=== PATIENT | male | born 1985 | race African-American/Black ===

== ENCOUNTER 2017-12-06 17:23 | Inpatient (IN) | payer OTHER ==
[~2017-12-06] VITALS: Ht 182.9 cm; Wt 116.1 kg
[2017-12-06 18:46] LABS: ABSOLUTE BASOPHIL COUNT 0 /CUMM (0.0-0.2); ABSOLUTE EOSINOPHIL COUNT 0.1 /CUMM (0.0-0.7); ABSOLUTE GRANULOCYTE CT 8.7 /CUMM (1.4-6.5); ABSOLUTE LYMPH COUNT 1.6 /CUMM (1.2-3.4); ABSOLUTE MONOCYTE COUNT 0.8 /CUMM (0.10-0.60); BASOPHIL % 0.3 % (0.0-2.0); EOSINOPHIL % 1.1 % (0-5); GRANULOCYTE % 77.4 % (42.2-75.2); HEMATOCRIT 45.6 % (42-52); MEAN CORPUSCULAR HGB 26.4 PG (27.0-31.0); MEAN CORPUSCULAR HGB CONC 33.3 G/DL (33.0-37.0); MEAN CORPUSCULAR VOLUME 79.3 FL (80.0-94.0); MEAN PLATELET VOLUME 9.1 FL (7.4-10.4); PLATELET COUNT 243 /CUMM (130-400); RBC DISTRIBUTION WIDTH 13.2 % (11.5-14.5); RED BLOOD CELL CT 5.76 /CUMM (4.70-6.10); WHITE BLOOD CELL COUNT 11.3 /CUMM (4.8-10.8)
--- NOTE | 2017-12-06 19:09 | ED PSYCHIATRIC COMPLAINT ---
History of Present Illness General Chief Complaint: Psychiatric Related Complaint Stated Complaint: PT SI COMMENTS Source: patient Exam Limitations: no limitations Vital Signs & Intake/Output Vital Signs & Intake/Output Vital Signs Date Time Temp Pulse Resp B/P B/P Pulse O2 O2 Flow FiO2 Mean Ox Delivery Rate 12/08 0830 97.8 78 18 159/93 96 Room Air 12/08 0541 97.1 67 18 132/78 98 12/08 0026 97.7 62 18 143/86 98 Room Air 12/07 2127 97.8 68 20 158/110 98 Room Air 12/07 1922 98.5 73 20 118/90 99 Room Air 12/07 1727 98.4 77 20 120/90 98 Room Air 12/07 1444 98.2 77 18 137/98 98 Room Air Allergies Coded Allergies: No Known Allergies (12/06/17) Triage Note: 32M TO ED WITH INCREASED DEPRESSION AND SI THOUGHTS WITH PLAN TO SMOKE CRACK. RECENTLY GOT OUT OF RESIDENTIAL IN [place] AND LIVING WITH MOTHER AND WANTS TO LIVE A HEALTHIER LIFE AND BE INVOLVED IN HIS CHILDRENS LIVES. ARRIVES WITH BROTHER FOR EMOTIONAL SUPPORT. CALM, COOPERATIVE IN TRIAGE. DENIES ILLICIT DRUG USE BUT STATES HE ACCIDENTALLY ATE AN EDIBLE RECENTLY AND WASN'T AWARE. REQUESTING POSSIBLE METHADONE OR SUBOXONE TREATMENT. CALM, COOPERATIVE IN TRIAGE AND AGREEABLE TO PLAN. Triage Nurses Notes Reviewed? yes Onset: Abrupt Duration: day(s): Timing: recent history HPI: 32-year-old male with a prior history of substance abuse crack cocaine comes into the emergency room with suicidal thoughts and anxious. He reports she's been hearing voices. He reports that today he almost started to use drugs again. He denies any alcohol use or any other drug use. He reports she is not using about 6 months. Denies any vomiting. Denies any other associated symptoms. He's had some fleeting thoughts of suicide. (Jimmie Wells) Reconcile Medications No Known Home Medications (Mara RIVERA,Blane Belcher) Past History Travel History Traveled to [place] past 21 day No Medical History Any Pertinent Medical History? see below for history Neurological: NONE EENT: NONE Cardiovascular: NONE Respiratory: NONE Gastrointestinal: NONE Hepatic: NONE Renal: NONE Musculoskeletal: NONE Psychiatric: NONE Endocrine: NONE Blood Disorders: NONE Cancer(s): NONE Isolation History: Standard Surgical History Surgical History: non-contributory Psychosocial History What is your primary language Azerbaijani Tobacco Use: Current Not Daily Daily Tobacco Use Amount/Type: =< 4 Cigarettes daily ETOH Use: occasional use Illicit Drug Use: UTD Family History Hx Contributory? No (Jimmie Wells) Review of Systems Review of Systems Constitutional: Reports: no symptoms. EENTM: Reports: no symptoms. Respiratory: Reports: no symptoms. Cardiovascular: Reports: no symptoms. GI: Reports: no symptoms. Genitourinary: Reports: no symptoms. Musculoskeletal: Reports: no symptoms. Skin: Reports: no symptoms. Neurological/Psychological: Reports: see HPI. Hematologic/Endocrine: Reports: no symptoms. Immunologic/Allergic: Reports: no symptoms. All Other Systems: Reviewed and Negative (Jimmie Wells) Physical Exam Physical Exam General Appearance: well developed/nourished, mild distress Head: atraumatic Eyes: Bilateral: normal appearance. Ears, Nose, Throat: normal ENT inspection, hearing grossly normal Neck: normal inspection Respiratory: no respiratory distress Cardiovascular: regular rate/rhythm Extremities: normal range of motion Neurological/Psychiatric: alert, normal mood/affect Appearance/Memory/Insight: impaired insight Behavoir/Eye Contact/Speech: cooperative Thoughts/Hallucinations: no apparent hallucination Skin: intact, normal color, warm/dry SAD PERSONS SAD PERSONS Response Value Male Sex? yes 1 Depression/Hopelessness? yes 2 Excessive Ethanol/Drug Use? yes 1 Rational Thinking Loss? yes 2 Single//? yes 1 Total 7 SAD PERSONS Done? yes (Jimmie Wells) Progress Differential Diagnosis: dementia, drug intoxication, drug overdose, drug withdrawal, SCHIZOAFFECTIVE, BIPOLAR, PSYCHOSIS, Plan of Care: Current Medications Sig/Julieta Start time Last Medication Dose Stop Time Status Admin Risperidone 1 MG BID 12/06 2014 UNVr 12/08 (Risperidone) 1014 Hand-Off Endorsed To: Palmer Damon MD Endorsed Time: 2045 Pending: consult (CRISIS) (Jimmie Wells) Comments: 12/07/17 07:10 pt signed out to me by dr damon. 12/07/2017 7:08:31 PM patient signed out to Dr. Palmer at shift international exchange coordinator. (Mara RIVERA,Blane Belcher) Departure Departure Disposition: STILL A PATIENT Condition: Stable Referrals: Unknown (PCP/Family) Departure Forms: Customer Survey General Discharge Information (Jmimie Wells) Departure Prescriptions: Current Visit Scripts No Known Home Medications (Mara RIVERA,Blane Belcher) Departure Comments pt to be signed out to dr. miller, 12/08/17, 7am. (Otto Palmer MD) Departure Clinical Impression Primary Impression: Suicidal ideation Secondary Impressions: Schizophrenia, unspecified Admission Note Spoke With: Otto Lezama MD Documentation of Exam: Documentation of any treatments & extenuating circumstances including Concerns Regarding Discharge (functional status, medication knowledge or non-compliance, living conditions, etc.) that warrant an admission rather than observation: [ Admit to inpatient psychiatry, med management] Psych Admission Note Psychiatric Admission: I have seen and evaluated MARIE RODRIGUEZ. I have also reviewed all the pertinent lab results and diagnostic results. MARIE RODRIGUEZ will be admitted to our inpatient Psychiatric unit for treatment and care. (Sophia RIVERA,Brian Cameron) Comments pt to be signed out to dr. miller, 12/08/17, 7am. (Otto Palmer MD) Condition: Stable Clinical Impression Primary Impression: Suicidal ideation Referrals: Unknown (PCP/Family) Departure Forms: Customer Survey General Discharge Information (Jimmie Wells)
--- NOTE | 2017-12-06 20:34 | ED PSYCH CRISIS CONSULTATION ---
See Addendum Crisis Consult Basic Assessment Date of Consult: 12/06/17 Responsible Person/Accompanied By: friend, Olayinka Insurance Authorization: Insurance #1: Insurance name: [employer]YA Phone number: Policy number: [id number] Group number: Authorization number: ED Provider: Patient's ED Provider: Jimmie Wells Primary Care Physician: Patient's PCP: Unknown PCP's Phone Number: Current Psychiatrist: none Chief Complaint: Psychiatric Related Complaint Patient's Quote: "I have a lot going on right now" Present Illness: Pt is a 32 year old man presenting to the ED with his friend Olayinka. Pt demonstrated disorganized thinking during the assessment and it was difficult to obtain an accurate timeline of events patient was reporting. Pt is local to the [facility] but his friend brought him here as this was the closer hospital to where they were. Pt reports he has been reading the Bible a lot and it is tormenting him. He has been hearing voices - some God some demonic. He states the voices are not loud and he has to concentrate on them to make out what they are saying. When he hears them they scare him. He reports he has been hearing voices for a few years. He initially denied mental health treatment and stated he went to see a annealing torch operator. He reports he wants to but he doesn't want to kill himself because it is a sin. He denies prior suicide attempts. He did have a sister who killed herself 10-15 years ago. Pt offers that he did a lot of self medicating. Pt has a history of using ETOH, Cigarettes , Marijuana, Cocaine, Crack-Cocaine, Mushrooms, Acid, Heroin and Methadone. Pt offers that the most recent drug he was using was Methadone and Crack-Cocaine. Pt offers that he was on Methadone maintenence through [facility] but he is no longer on Methadone. Pt's utox was negative and BAL was zero. Pt offered that the second most recent drug he was using was Crack/Cocaine. He stated he started using this 2 years ago and his last use was April 14, 2017. When asked he remembered that date he said because he went to halfway on April 15, 2017. He stated that he went to halfway because he heard voices telling him that his daughter was being raped so he went to his kid's mother's house with a machete. He was subsequently arrested and put in halfway. He shared he was in halfway for 5-6 months. He was in [place] and the mental health block at [facility]. While on the mental health block he states he was told is he bipolar and was started on Trileptal and Abilify. Pt states they didn't help and made him more depressed. Pt expressed guilt in not being a good father to his two daughters (7 & 9). He states there are no current restrictions for visitation for his daughters but he does not see them often. DCF was involved in the past but he states not currently. Pt reports he has court at the end of November for the incident previously described. He is on probation. He is involved in a halfway diversion program. Pt frequently returned to talking about how he is worried about his eternal life. He shared that he was raised orthodox but did not complete any sacraments. He has always believed in Devang/God. He currently lives with his mom and father (who is ill). Patient endorses AH with command hallucinations at times. The voices told him to gouge his eyes out today. Pt does believe that something is meddling with his thoughts. He does think everything is talking/ communicating. He states at times he see flashes of light that is unsure if anyone else sees. Olayinka, friend, offers that his is concerned about the pt. He believes he is hearing voices and is "bugging out". He has known pt since they were 8 years old. He believes safety is an issue. We discussed options for treatment. Crisis highly recommended patient for inpatient psychiatric treatment for stabalization. [facility] Explained that there are no beds here at our hospital tonight and that he would be spending the night. Pt agreed. Informed patient that best case scenario is that he is able to be transferred tomorrow and worst case scenario is that he is admitted here Friday, if we have bed availabilty. Pt agrees to remain in ED with pending admission for inpatient psychiatric hospitalization. Pt was asked if he would be willing to start a medication tonight to try to alleviate the AH. Pt stated yes. Crisis consulted with Dr. Velásquez- client professional psychiatrist. He recommended Risperdal 1mg bid. Crisis informed RN and Dr. Damon who ordered the medication. Patient's Address: [address] [place] [id number] Other Phone Number: Who Do You Live With? Family Family/Informants Interviewed: Friend, Olayinka was present with pt during assessment and offered that he is worried about the pt's safety. Allergies - Coded Allergies: No Known Allergies (12/06/17) Laboratory Results: Laboratory Tests 12/06/171834: Serum Alcohol < 10.0 12/06/171834: Anion Gap 12, Estimated GFR > 60, BUN/Creatinine Ratio 12.5, Glucose 104 H, Calcium 9.5, Total Bilirubin 1.0, AST 23, ALT 33, Alkaline Phosphatase 64, Total Protein 7.7, Albumin 4.4, Globulin 3.3, Albumin/Globulin Ratio 1.3, CBC w Diff NO MAN DIFF REQ, RBC 5.76, MCV 79.3 L, MCH 26.4 L, MCHC 33.3, RDW 13.2, MPV 9.1, Gran % 77.4 H, Lymphocytes % 14.4 L, Monocytes % 6.8, Eosinophils % 1.1, Basophils % 0.3, Absolute Granulocytes 8.7 H, Absolute Lymphocytes 1.6, Absolute Monocytes 0.8 H, Absolute Eosinophils 0.1, Absolute Basophils 0, Urine Opiates Screen < 100, Methadone Screen < 40, Barbiturate Screen < 60, Ur Phencyclidine Scrn < 6.00, Amphetamines Screen < 100, U Benzodiazepines Scrn < 85, Urine Cocaine Screen < 50, Urine Cannabis Screen < 5.00 (Shahla Ventura LCSW) Addendum Addendum Addendum 12/07/17: Pt. was very forthcoming in his communication with this automobile and property underwriter. He said he was "going through a crisis in his life right now about roman catholic" and "christian turmoil" and is concerned about his "eternal bryan". He inquired about christian services available to him in the hospital today. He said "my friend caught be right before I was about to do it". When asked what it was, he said "buy some crack to smoke it", he explained that he thought smoking crack would temporarily distract him from the "christian problems" he is having now. Pt. is happy to wait here for a hospital bed, although he expressed doubts that it would help him with the "christian turmoil" he was having right now. (Didier CONSTANTINOW,Felicia) Past History Past Medical History Neurological: NONE EENT: NONE Cardiovascular: NONE Respiratory: NONE Gastrointestinal: NONE Hepatic: NONE Renal: NONE Musculoskeletal: NONE Psychiatric: NONE Endocrine: NONE Blood Disorders: NONE Cancer(s): NONE Past Surgical History Surgical History: non-contributory Psychosocial History Strengths/Capabilities: patient has a supportive family pt is involved in an IOP in [place] and is in halfway diverson program Physical Limitations (Interventions): none Psychiatric Treatment History Psych Treatment Psychiatric Treatment No Diagnosis by History: Bipolar by psychiatrist on mental health block in halfway Substance Use/Abuse History Drug Use/Abuse 1 Substances Used/Abused Yes Substance Used/Abused Alcohol How often when he was younger, no longer drinks Drug Use/Abuse 2 Substances Used/Abused Yes Substance Used/Abused Marijuana First Use 13 Last Used 1 year ago How much used/taken from age 14 on he reports mostly smoking daily Route of use inhale Drug Use/Abuse 3 Substances Used/Abused Yes Substance Used/Abused Cocaine First Use college Last Used unsure Drug Use/Abuse 4 Substances Used/Abused Yes Substance Used/Abused Hallucinogens (acid/ mushrooms) Last Used unk, not current use Drug Use/Abuse 5 Substances Used/Abused Yes Substance Used/Abused Heroin First Use unk Last Used unk How much used/taken varied Route of use snort Drug Use/Abuse 6 Substances Used/Abused Yes Substance Used/Abused Crack Cocaine First Use 31 Last Used 04/14/17 Drug Use/Abuse 7 Substances Used/Abused Yes Substance Used/Abused Other (list in comments) (Methadone) Last Used reports recently stopped taking Methadone Substance Abuse Treatment Substance Abuse Treatment Past Substance Abuse [place] Yes Inpatient Treatment Yes Outpatient Treatment Yes [facility]unsure [facility]) Reason for Treatment substance abuse (Audrey CONSTANTINOW,Shahla) Current Mental Status Mental Status Orientation: Person, Place, Situation Affect: Sad Speech: Normal Neuro-vegetative: Anhedonia, Helpless, Loss of Interest Appearance Appearance- Dress/Hygiene: pt presents in blue hospital attire no remarkable features Behaviors Thought Process: Disorganized Thought Content: Auditory Hallucinations, Paranoid, Zoroastrianism Memory: Impaired Insight: Fair SI/HI Risk Assessment Past Suicidal Ideation/Attempts Yes Current Suicidal Ideation/Att Yes Past Homicidal Ideation/Att: No Current Homicidal Ideation/Attempts No Degree of Intent: Thoughts/No Intent Danger To: Self Risk Factors: high anxiety/distress, substance abuse, poor impulse control, male , limited support Lethality Ratin PTSD Checklist PTSD Done? 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 Aamir Velásquez Date Disposition Established: 12/06/17 Time Disposition Established: 1999 Plan for Disposition - Modality: Inpatient Psychiatry Facility: bed search Rationale for Disposition: Pt to ED with thoughts wishing to be as well as AH (at times they are command hallucinations to hurt himself). Pt requires inpatient treatment for stabalization. Referrals Unknown (PCP/Family) (Shahla Ventura LCSW)
--- NOTE | 2017-12-07 14:04 | ED PSYCHIATRIST/APRN CONSULT ---
Psychiatrist/PL SQL DEVELOPER ED Consult Assessment and Plan: ED psychiatrist consult Evaluated Mr. Mills [id number] this morning. Briefly, he is a 32-year-old unemployed, domiciled man with long-standing history of substance use disorders as well as history of incarceration. He presented to the emergency department yesterday accompanied by his friend due to poor mood and paranoid ideation. He agreed to voluntary inpatient hospitalization, and is currently awaiting identification of an inpatient bed. He was given risperidone 1 mg twice a day beginning last evening. Mr. Mills describes a number of phenomena concerning for psychosis, including paranoid ideation, ideas of reference, thought insertion, "sometimes I just feel like the TV is talking to me ". He notes that this is been going on for a few months. Concurrently, his mood has become increasingly depressed, describes increased amount of time reading the Bible and thinking about various jainism themes, thinking about the devil, thinking about where he will go in the afterlife, etc. He also notes the onset of auditory hallucinations, "I'm not exactly sure who it is, maybe the devil ". He says that the voice is generally negative, never of command nature to kill himself or others, however, often times does tell him to use substances. He notes that he hasn't actually used any substances for months now, and his urine drug screen was indeed negative. He does not describe any amando manic episodes in the absence of concurrent stimulant use, however, he does note in the past that concurrent with cocaine use he has been up for days on end, thinking he has special stover, grandiosity, etc. During the past few days, he denies thoughts about hurting himself or others, "I actually want to get better, I want to live." Family history: notes that his brother has bipolar disorder, and "both my mom and dad have something, I don't know exactly what it is ". Also notes his grandmother with psychiatric disease consistent with bipolar disorder. Please see the remainder of crisis outreach and education social worker note for further details Mental status exam: This is a moderately disheveled overweight man with a ramirez, very cooperative, in good behavioral control, good eye contact. There is mild psychomotor retardation. No abnormal movements are noted. Speech is slightly slowed, quiet. Mood is "really really depressed ", affect is somewhat odd, mildly labile. Thought process is somewhat circumstantial, content notable for ideas of reference, possible thought insertion, possible thought broadcasting, positive auditory hallucinations "of the devil ", generally noncommand nature, denies any visual hallucinations. Positive paranoid ideation. Cognition is alert and oriented to person, place, time. Insight and judgment are fair. Assessment: 32-year-old man with long-standing substance abuse history with strong family history for bipolar disorder presenting with months of psychotic symptoms in the absence of any recent active substance use, accompanied by significant depression, concerning for a psychotic depressive episode, likely with an underlying diagnosis of bipolar disorder. Recommendation: will continue to attempt to arrange psychiatric hospitalization on a voluntary basis -Pls continue to offer Risperdal 1 mg twice a day to provide some relief from psychotic symptoms. Described the risks and benefits of this medication to the patient and answered all questions. He does note that this was of some benefit to his symptoms even after a few doses.
--- NOTE | 2017-12-08 11:28 | IP CRISIS DIAG ASSESS PSYCH ---
Diagnostic Assessment Basic Assessment Insurance Authorization: Insurance #1: Insurance name: [employer] Phone number: Policy number: [id number] Group number: Authorization number: [id number] Authorized for 3 days from 12/08/17-12/10/17 Primary Care Physician: Patient's PCP: Unknown PCP's Phone Number: Patient's Quote: "I have a lot going on right now" Present Illness: Pt is a 32 year old man presenting to the ED with his friend Olayinka. Pt demonstrated disorganized thinking during the assessment and it was difficult to obtain an accurate timeline of events patient was reporting. Pt is local to the [facility] but his friend brought him here as this was the closer hospital to where they were. Pt reports he has been reading the Bible a lot and it is tormenting him. He has been hearing voices - some God some demonic. He states the voices are not loud and he has to concentrate on them to make out what they are saying. When he hears them they scare him. He reports he has been hearing voices for a few years. He initially denied mental health treatment and stated he went to see a head turning machine operator. He reports he wants to but he doesn't want to kill himself because it is a sin. He denies prior suicide attempts. He did have a sister who killed herself 10-15 years ago. Pt offers that he did a lot of self medicating. Pt has a history of using ETOH, Cigarettes , Marijuana, Cocaine, Crack-Cocaine, Mushrooms, Acid, Heroin and Methadone. Pt offers that the most recent drug he was using was Methadone and Crack-Cocaine. Pt offers that he was on Methadone maintenence through [facility] but he is no longer on Methadone. Pt's utox was negative and BAL was zero. Pt offered that the second most recent drug he was using was Crack/Cocaine. He stated he started using this 2 years ago and his last use was April 14, 2017. When asked he remembered that date he said because he went to halfway on April 15, 2017. He stated that he went to halfway because he heard voices telling him that his daughter was being raped so he went to his kid's mother's house with a machete. He was subsequently arrested and put in halfway. He shared he was in halfway for 5-6 months. He was in [place] and the mental health block at [place]. While on the mental health block he states he was told is he bipolar and was started on Trileptal and Abilify. Pt states they didn't help and made him more depressed. Pt expressed guilt in not being a good father to his two daughters (7 & 9). He states there are no current restrictions for visitation for his daughters but he does not see them often. DCF was involved in the past but he states not currently. Pt reports he has court at the end of November for the incident previously described. He is on probation. He is involved in a halfway diversion program. Pt frequently returned to talking about how he is worried about his eternal life. He shared that he was raised anabaptist but did not complete any sacraments. He has always believed in Devang/God. He currently lives with his mom and father (who is ill). Patient endorses AH with command hallucinations at times. The voices told him to gouge his eyes out today. Pt does believe that something is meddling with his thoughts. He does think everything is talking/ communicating. He states at times he see flashes of light that is unsure if anyone else sees. Olayinka, friend, offers that his is concerned about the pt. He believes he is hearing voices and is "bugging out". He has known pt since they were 8 years old. He believes safety is an issue. We discussed options for treatment. Crisis highly recommended patient for inpatient psychiatric treatment for stabalization. [facility] Explained that there are no beds here at our hospital tonight and that he would be spending the night. Pt agreed. Informed patient that best case scenario is that he is able to be transferred tomorrow and worst case scenario is that he is admitted here Friday, if we have bed availabilty. Pt agrees to remain in ED with pending admission for inpatient psychiatric hospitalization. Pt was asked if he would be willing to start a medication tonight to try to alleviate the AH. Pt stated yes. Crisis consulted with Dr. Velásquez- space and missile operations psychiatrist. He recommended Risperdal 1mg bid. Crisis informed RN and Dr. Damon who ordered the medication. Per Dr. Velásquez: ED psychiatrist consult Evaluated Mr. Mills [id number] this morning. Briefly, he is a 32-year-old unemployed, domiciled man with long-standing history of substance use disorders as well as history of incarceration. He presented to the emergency department yesterday accompanied by his friend due to poor mood and paranoid ideation. He agreed to voluntary inpatient hospitalization, and is currently awaiting identification of an inpatient bed. He was given risperidone 1 mg twice a day beginning last evening. Mr. Mills describes a number of phenomena concerning for psychosis, including paranoid ideation, ideas of reference, thought insertion, "sometimes I just feel like the TV is talking to me ". He notes that this is been going on for a few months. Concurrently, his mood has become increasingly depressed, describes increased amount of time reading the Bible and thinking about various church themes, thinking about the devil, thinking about where he will go in the afterlife, etc. He also notes the onset of auditory hallucinations, "I'm not exactly sure who it is, maybe the devil ". He says that the voice is generally negative, never of command nature to kill himself or others, however, often times does tell him to use substances. He notes that he hasn't actually used any substances for months now, and his urine drug screen was indeed negative. He does not describe any amando manic episodes in the absence of concurrent stimulant use, however, he does note in the past that concurrent with cocaine use he has been up for days on end, thinking he has special stover, grandiosity, etc. During the past few days, he denies thoughts about hurting himself or others, "I actually want to get better, I want to live." Family history: notes that his brother has bipolar disorder, and "both my mom and dad have something, I don't know exactly what it is ". Also notes his grandmother with psychiatric disease consistent with bipolar disorder. Please see the remainder of crisis social work therapist note for further details Mental status exam: This is a moderately disheveled overweight man with a ramirez, very cooperative, in good behavioral control, good eye contact. There is mild psychomotor retardation. No abnormal movements are noted. Speech is slightly slowed, quiet. Mood is "really really depressed ", affect is somewhat odd, mildly labile. Thought process is somewhat circumstantial, content notable for ideas of reference, possible thought insertion, possible thought broadcasting, positive auditory hallucinations "of the devil ", generally noncommand nature, denies any visual hallucinations. Positive paranoid ideation. Cognition is alert and oriented to person, place, time. Insight and judgment are fair. Assessment: 32-year-old man with long-standing substance abuse history with strong family history for bipolar disorder presenting with months of psychotic symptoms in the absence of any recent active substance use, accompanied by significant depression, concerning for a psychotic depressive episode, likely with an underlying diagnosis of bipolar disorder. Recommendation: will continue to attempt to arrange psychiatric hospitalization on a voluntary basis -Pls continue to offer Risperdal 1 mg twice a day to provide some relief from psychotic symptoms. Described the risks and benefits of this medication to the patient and answered all questions. He does note that this was of some benefit to his symptoms even after a few doses. Patient's Address: [address] [place] [address] Other Phone Number: Who Do You Live With? Family Feel Safe Where You Live? Yes Marital Status: single Do You Have Children? Yes Ages? 7 & 9 Primary Language? Botswanan Language(s) Spoken At Home: [place] Family/Informants Interviewed: Friend, Olayinka was present with pt during assessment and offered that he is worried about the pt's safety. Allergies - Coded Allergies: No Known Allergies (12/06/17) Current Medications - No Known Home Medications Consequences of Psych Med Use: Pt reports he was on Trileptal and Abilify in the past. He reports they made him more depressed. Toxicology Screen Completed? Yes Results: negative Symptoms of Use: Pt is not currently using substance. Has a history of polysubstance abuse. Past History Abuse/Trauma History Trauma History/Current Trauma: Denies Legal History Current Legal Status: on probation Have you ever been arrested? Yes Number of Arrests: [address] Dates: Pt has court in [place] on 12/12/17. Psychosocial History Strengths/Capabilities: patient has a supportive family pt is involved in an IOP in [place] and is in halfway diverson program Physical Limitations (Interventions): none Psychiatric Treatment History Psych Treatment Psychiatric Treatment No Diagnosis by History: Bipolar by psychiatrist on mental health block in halfway Risk Factors: high anxiety/distress, substance abuse, poor impulse control, male , limited support Substance Use/Abuse History Drug Use/Abuse minimum 12mo Hx Substances Used/Abused Yes Substance Used/Abused Crack Cocaine (Methadone) First Use 30 Last Used 04/14/17 How much used/taken varied How often varied For how long on and off since 30 Route of use snort Substance Abuse Treatment Substance Abuse Treatment Past Substance Abuse TX Yes Inpatient Treatment Yes Outpatient Treatment Yes Location of Treatment [facility], [facility] (unsure of name) Reason for Treatment substance abuse Sexual History Sexually Active No Education History Highest Level of Education: some college Current Mental Status Mental Status Orientation: Person, Place, Situation Affect: Sad Speech: Normal Neuro-vegetative: Anhedonia, Helpless, Loss of Interest Appearance Appearance- Dress/Hygiene: pt presents in [facility] attire no remarkable features Behaviors Thought Process: Disorganized Thought Content: Auditory Hallucinations, Paranoid, Orthodoxy Memory: Impaired Insight: Fair SI/HI Risk Assessment - Minimum 6mo History- Past Suicidal Ideation/Attempts Yes Current Suicidal Ideation/Att Yes Past Homicidal Ideation/Att: No Current Homicidal Ideation/Attempts No Degree of Intent: Thoughts/No Intent Danger To: Self Risk Factors: high anxiety/distress, substance abuse, poor impulse control, male , limited support Lethality Ratin Needs/Init TX Plan/Goals: 1. Psychosocial Assessment 2. Psychiatric Assessment 3. 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
[2017-12-08 13:13] VITALS: BP 155/94
[2017-12-08 15:57] VITALS: BP 150/89
--- NOTE | 2017-12-08 17:31 | History & Physical ---
General Information and HPI MD Statement: I have seen and personally examined MARIE RODRIGUEZ and documented this H&P. The patient is a 32 year old M who presented with a patient stated chief complaint of "I have a lot going on right now". I have a lot going on right now " " Source of Information: patient, family Exam Limitations: unable to give history History of Present Illness: 32-year-old male having suicidal comments and having suicidal comments. . He came to the emergency department with increased depression and suicidal ideation.. He got out of residential in July. Living with his mother , came to the emergency room with his best friend friend reports hearing voices. "No drug use for the last 6 months". Patient does not seem safe Patient does not seem safe.. Allergies/Medications Allergies: Coded Allergies: No Known Allergies (12/06/17) Home Med list No Known Home Medications Compliance With Home Meds: UNKNOWN Past History Travel History Traveled to [place] past 21 day No Medical History Neurological: NONE EENT: NONE Cardiovascular: NONE Respiratory: NONE Gastrointestinal: NONE Hepatic: NONE Renal: NONE Musculoskeletal: NONE Psychiatric: NONE Endocrine: NONE Blood Disorders: NONE Cancer(s): NONE Isolation History: Standard Surgical History Surgical History: non-contributory Past Family/Social History Psychosocial History ETOH Use: occasional use Illicit Drug Use: UTD Review of Systems Review of Systems Constitutional: Reports: see HPI. Exam & Diagnostic Data Last 24 Hrs of Vital Signs/I&O Vital Signs Date Time Temp Pulse Resp B/P B/P Pulse O2 O2 Flow FiO2 Mean Ox Delivery Rate 12/08 1557 84 150/89 12/08 1313 97.8 76 155/94 12/08 1153 97.7 80 18 136/81 98 Room Air 12/08 0830 97.8 78 18 159/93 96 Room Air 12/08 0541 97.1 67 18 132/78 98 12/08 0026 97.7 62 18 143/86 98 Room Air 12/077 97.8 68 20 158/110 98 Room Air 12/07 1922 98.5 73 20 118/90 99 Room Air 12/07 1727 98.4 77 20 120/90 98 Room Air Intake & Output 12/08 1600 12/08 0800 12/08 0000 Intake Total Output Total Balance Patient 256 lb Weight Physical Exam General Appearance Alert, Oriented X3, Cooperative, No Acute Distress Skin No Rashes HEENT PERRLA, EOMI Neck Supple, No JVD Lymphatic Axillary nl, Cervical nl Cardiovascular Regular Rate, No Murmurs Lungs Clear to Auscultation, Normal Air Movement Abdomen Soft, No Tenderness, No Hepatospenomegaly Neurological Exam Findings: Normal Gait, Normal Speech, Strength at 5/5 X4 Ext, Normal Tone, Sensation Intact, Cranial Nerves 3-12 NL, Reflexes 2+ Cranial Nerves II through XII: Intact intact Extremities No Edema, Normal Pulses Vascular Normal Pulses, Pulses Symmetrical Last 24 Hrs of Labs/Axel: Laboratory Tests 12/06/171834: Serum Alcohol < 10.0 12/06/171834: Anion Gap 12, Estimated GFR > 60, BUN/Creatinine Ratio 12.5, Glucose 104 H, Calcium 9.5, Total Bilirubin 1.0, AST 23, ALT 33, Alkaline Phosphatase 64, Total Protein 7.7, Albumin 4.4, Globulin 3.3, Albumin/Globulin Ratio 1.3, CBC w Diff NO MAN DIFF REQ, RBC 5.76, MCV 79.3 L, MCH 26.4 L, MCHC 33.3, RDW 13.2, MPV 9.1, Gran % 77.4 H, Lymphocytes % 14.4 L, Monocytes % 6.8, Eosinophils % 1.1, Basophils % 0.3, Absolute Granulocytes 8.7 H, Absolute Lymphocytes 1.6, Absolute Monocytes 0.8 H, Absolute Eosinophils 0.1, Absolute Basophils 0, Urine Opiates Screen < 100, Methadone Screen < 40, Barbiturate Screen < 60, Ur Phencyclidine Scrn < 6.00, Amphetamines Screen < 100, U Benzodiazepines Scrn < 85, Urine Cocaine Screen < 50, Urine Cannabis Screen < 5.00 Assessment/Plan As Ranked By This Provider Problem List: 1. Schizophrenia, unspecified 2. Suicidal ideation Miscellaneous Miscellaneous Documentation Attending Case Discussed With: Tran RIVERA,Shawn Primary Care Physician: Unknown Patient sees these Specialists Psychiatry Level of Patient Care: NAPOLEON Tripp Consults Needed: Consulting Specialty: Psychiatry Consulting Physician: Dr Lezama Reason for Consult: suicidal ideation and depression
[2017-12-08 19:32] VITALS: BP 153/90
[2017-12-09 07:57] VITALS: BP 137/75
--- NOTE | 2017-12-09 11:00 | SOCIAL WORKER PROG NOTE PSYCH ---
Social Work Progress Note Progress Note Terrance talked about feeling very depressed recently and was experiencing difficulty in functioning due to alot of rastafari preoccupation and voices that seemed to be controlling his ability to live life. He reports that he has been more depressed since his incarceration from March 2017. He was in [facility] for a few months, but then released to a community program which he finished in October. He reports alot of rastafari dialogue going on between him and God. He's been very worried and down on himself. Spending alot of time thinking about his past actions, current behavior, and the future. He said he's been feeling torn. Feels guilt over past actions and isn't sure if he is going to go to hel. He shared that occasionally there is a demonic voice he hears. He denies that it it is saying anything of command in nature or harmful. He denies wanting to hurt himself. He is finding the voices to be somewhat annoying and causing alot of distraction. He reports being on probation through [place] [facility], but hasn't been assigned a risk officer yet. He reports he is due in court soon (didn't remember date) to discuss the type of probation he would be on. He reports living with his Mother. States their relationship is good. He is open to having a family meeting. He has been in [facility] with [facility]. He said he has almost completed the IOP and wants to finish to complete the requirements of probation. He said he stopped going to a couple of weeks ago. Said he felt that he was being controlled by the voices and that he just stayed in bed and was avoiding going out. He is feeling less controlled today. He smiled some during our discussion. He said he is starting to feel better. He reports God is telling him to just "be himself." Called his Mother to schedule a meeting 2pm . Mom expressed alot of concern over his symptoms. Reports poor trials on [place], [place]. Risperdal was helpful.
[2017-12-09 12:16] VITALS: BP 145/77
--- NOTE | 2017-12-09 13:07 | CPS PROVIDER INIT ASMT PSYCH ---
Psychiatric Admission Life Skills Coordinator's Note Reviewed: Yes Patient Seen and Examined: Yes Identifying Information: 32-year-old male Chief Complaint: psychotic symptoms Reaction to Hospitalization: voluntary History of Present Illness Onset of Illness: at least since March 2017 Circumstances Leading to Admission: unemployed, domiciled man with long-standing history of substance use disorders as well as history of incarceration. He presented to the emergency department accompanied by his friend due to poor mood and paranoid ideation. Mr. Mills describes a number of phenomena concerning for psychosis, including paranoid ideation, ideas of reference, thought insertion, "sometimes I just feel like the TV is talking to me ". He notes that this is been going on for a few months. Concurrently, his mood has become increasingly depressed, describes increased amount of time reading the Bible and thinking about various buddhist themes, thinking about the devil, thinking about where he will go in the afterlife, etc. He also notes the onset of auditory hallucinations, "I'm not exactly sure who it is, maybe the devil ". He says that the voice is generally negative, never of command nature to kill himself or others, however, often times does tell him to use substances. He notes that he hasn't actually used any substances for months now, and his urine drug screen was indeed negative. He does not describe any amando manic episodes in the absence of concurrent stimulant use, however, he does note in the past that concurrent with cocaine use he has been up for days on end, thinking he has special stover, grandiosity, etc. During the past few days, he denies thoughts about hurting himself or others, "I actually want to get better, I want to live." al status exam: This is a moderately disheveled overweight man with a ramirez, very cooperative, in good behavioral control, good eye contact. There is mild psychomotor retardation. No abnormal movements are noted. Speech is slightly slowed, quiet. Mood is "really really depressed ", affect is somewhat odd, mildly labile. Thought process is somewhat circumstantial, content notable for ideas of reference, possible thought insertion, possible thought broadcasting, positive auditory hallucinations "of the devil ", generally noncommand nature, denies any visual hallucinations. Positive paranoid ideation. Cognition is alert and oriented to person, place, time. Insight and judgment are fair. Assessment: 32-year-old man with long-standing substance abuse history with strong family history for bipolar disorder presenting with months of psychotic symptoms in the absence of any recent active substance use, accompanied by significant depression, concerning for a psychotic depressive episode, likely with an underlying diagnosis of bipolar disorder. Recommendation: will continue to attempt to arrange psychiatric hospitalization on a voluntary basis -Pls continue to offer Risperdal 1 mg twice a day to provide some relief from psychotic symptoms. Described the risks and benefits of this medication to the patient and answered all questions. He does note that this was of some benefit to his symptoms even after a few doses. Problem(s) Justifying Need for Admission: paranoid and buddhist delusions Past Psychiatric History Past Diagnosis(es)- if any: Bipolar Past Precipitating Factors- if any: cocaine use - Include inpatient and outpatient treatment Treatment History: While incarcerated History of Suicide Attempts or Gestures denied Substance Abuse History: cocaine use disorder Allergies: Coded Allergies: No Known Allergies (12/06/17) Home Med List: none recently - Include any medical condition(s) that may - impact the patient's recovery/remission Past History Medical History Neurological: NONE EENT: NONE Cardiovascular: NONE Respiratory: NONE Gastrointestinal: NONE Hepatic: NONE Renal: NONE Musculoskeletal: NONE Psychiatric: NONE Endocrine: NONE Blood Disorders: NONE Cancer(s): NONE Isolation History: Standard Surgical History Surgical History: non-contributory Psychiatric Family/Social Hx Family History Psychiatric Illness: Family history: notes that his brother has bipolar disorder, and "both my mom and dad have something, I don't know exactly what it is ". Also notes his grandmother with psychiatric disease consistent with bipolar disorder. Substance Use: not explored Suicides: denied Social History Living Situation: undomiciled Significant Relationships (family/friends): mother Education: not explored Vocation/Occupation: unemployed Legal: was incarcerated in March 2017 Healthly Behaviors Screening Tobacco Screening Tobacco Use from ED Docu: Current Not Daily Daily Tobacco Use Amount/Type: =< 4 Cigarettes daily - If tobacco counseling indicated - the following topics are required. - #1 Recognizing dangerous situations. - #2 Coping Skills. - #3 Basic information about quitting. Status of Tobacco Cessation Counseling: #1, #2 AND #3 Completed Cessation Med Status Nicotine Patch Ordered Alcohol Screening - ETOH screen POS if BAL >=80 or Audit-C>= M4/F3 Audit-C Score from Diag Assess: 0 Alcohol Use Screening Results: Neg per Audit C &/or BAL - If ETOH counseling indicated - the following topics are required. - #1 Express concern about the patient's - drinking at unhealthy levels, include informing - of national norms for moderate drinking: - men <= 14 drinks/week, max 4 drinks/occasion - women <= 7 drinks/week, max 3 drinks/occasion - #2 Providing feedback, including linking alcohol to - negative physical effects (liver injury, hypertension) - negative emotional effects (relationship problems and - depression) - negative occupational consequences (reduced work - performance) - #3 Advising the patient to abstain from alcohol or - to drink below national norms for moderate drinking - (as listed above). Status of ETOH Use Counseling: N/A B/C NO ETOH Use Metabolic Screening - Screen if on a Neuroleptic Medication - Metabolic screening should include: - Blood Pressure, BMI, Glucose or Hgb A1c, & a - Lipid profile from within the past 365 days. Metabolic Screening Patient on a neuroleptic(s) . Enter below results for Hemoglobin A1C, and lipid panel if obtained during the last 365 days. BMI: 34.700 Blood Pressure: 141/80 Laboratory Results From [facility] (If applicable): labs ordered Exam and Plan Mental Status Examination Ambulation Status: The patient was steady on his feet. Appearance: Bearded tall and overweight male Attitude towards examiner: Cooperative Psychomotor activity: Normal psychomotor activity Behavior: No abnormal or bizarre behaviors Quality of speech: No pressure in his speech. Affect: Seems to have good range of affect. Mood: Patient denied feeling depressed. Suicidal Ideation: Patient denied thinking of suicide or wishing . Homicidal Ideation: Patient denied having violent thoughts or thoughts of homicide. Hallucinations: Patient denied hallucinations in the past 24 hours but it seems that he has experienced auditory hallucinations recently Paranoid/Delusional Material: The patient does have paranoid delusions as well as buddhist delusions. Difficulties with thought organization: Did not seem to have difficulties with thought organization, he was coherent despite his delusions Insight: Impaired insight Judgment: Impaired judgment Orientation: He was alert and oriented to time, place, and person. Cognition: Seems to have minor difficulties with attention and concentration. Memory Function: Did not seem to have any impairment in his short-term memory. Estimate of intellectual functioning: Average Assets/Strengths Patient Identified Assets/Strengths: Patient seems to be likable, social, and has a supportive mother. Impression/Plan Impression and Plan: 32-year-old man with long-standing substance abuse history with strong family history for bipolar disorder presenting with months of psychotic symptoms in the absence of any recent active substance use, accompanied by significant depression, concerning for a psychotic depressive episode, likely with an underlying diagnosis of bipolar disorder. - Include all active medical diagnosis that require tx DSM 5 Diagnosis(es): Unspecified Psychotic Disorder Cocaine Use Disorder - Initial Tx Plan for Active Psych & Medical Conditions Treatment Plan: Inpatient psychiatric care Change risperidone to 2 mg at bedtime - Factors that would help patient function - in a less restrictive setting. Factors: will be discharged once psychosis is under good control
[2017-12-09 15:55] VITALS: BP 152/84
--- NOTE | 2017-12-09 19:47 | SOCIAL WORKER SOCIAL HX PSYCH ---
Social History Basic Assessment Insurance Authorization: Insurance #1: Insurance name: [employer] Phone number: Policy number: [id number] Group number: Authorization number: Curr Source of Income/Entitlements: food stamps Primary Care Physician: Patient's PCP: Unknown PCP's Phone Number: Present Problem: Admitted for thoughts of si and hearing voices Primary Language? [place] Language(s) Spoken At Home: [place] Living Situation Rents or Owns Home? rents Other Living Arrangement: relative's/guardian's luis Feel Safe Where You Are Living Yes Feel Safe in Relationships? Yes (n/a) Allergies - Coded Allergies: No Known Allergies (12/06/17) Current Medications - No Known Home Medications Past History Past Medical History Neurological: NONE EENT: NONE Cardiovascular: NONE Respiratory: NONE Gastrointestinal: NONE Hepatic: NONE Renal: NONE Musculoskeletal: NONE Psychiatric: NONE Endocrine: NONE Blood Disorders: NONE Cancer(s): NONE Past Surgical History Surgical History: non-contributory /Family History Place/Country of Origin: [place], [place] Childhood Family Constellation: 2 brothers and parents Primary Childhood Caretakers: father, mother Family Life During Childhood: rough DCF Involvement? No Mother's Age (Current/): 72 Relationship w/Mother: I live with her Relationship w/Father: he is sick Any Sibling(s)? Yes Sibling's Gender(s)/Age(s): male Sibling 1:, male Sibling 2: Relationship w/Sibling(s): doesnt answer Relationship w/Friends: Pt is disorganized and tangential, is not able to answer this Family Psych/Sub Abuse/Add Hx: denies Abuse/Trauma History Trauma History/Current Trauma: Denies Legal History Pending Court Dates: "have to check with my mom" Have you ever been arrested Yes Number of Arrests: 4 Hx of Juvenile Legal Charges? No Hx of Adult Legal Charges? Yes If Yes: felony List/Date Most Recent Lgl Chgs: unknown/ pending court date [employer] unknown Psychosocial History Primary Support System: mother Strengths/Capabilities: patient has a supportive family pt is involved in an [facility] and [facility] Weaknesses: religiouly preoccupied, and hypersexual at the time of evaluation Physical Limitations (Interventions): none Last Physical: unknown History of Seizures? No History of Blackouts? No ADL Limitations: denies [place]/Social/Peer Relations unclear Meaningful Activities: Just making a life that is righteous thru the eyes of aleja christine Childhood Caodaism: Judaism Current Yazdanism Affiliation: Judaism Is Spirituality Important to You? yes Cultural/Ethnic Issues: denies Are There Developmental Issues? No Milestones Achieved: fine motor, gross motor Psychiatric Treatment History Psych Treatment Inpatient Treatment No Diagnosis: Bipolar by psychiatrist on mental health block [facility] Risk Factors: high anxiety/distress, substance abuse, poor impulse control, male , limited support Substance Use/Abuse History Drug Use/Abuse:Min 12 mo hx Substance Used/Abused Crack Cocaine (Methadone) First Use 30 Last Used 04/14/17 How much used/taken varied How often varied For how long on and off since 30 Route of use snort Symptoms of Use: Pt is not currently using substance. Has a history of polysubstance abuse. Substance Abuse Treatment Substance Abuse Treatment Inpatient Treatment Yes Outpatient Treatment Yes Location of Treatment [facility] (unsure of name) Reason for Treatment substance abuse Sexual History Sexually Active No Sexual Orientation Other Use of Protection No Sexual Concerns: he is struggling with sexuality Education History Highest Level of Education: some college Preferred Learning Style: experiential HX of Learning Difficulties: None reported Barriers to Learning: None reported Special Communication Needs: None reported History Have You Been in The ? No Current Mental Status Mental Status Orientation: Person, Place, Situation Affect: Sad Speech: Normal Neuro-vegetative: Anhedonia, Helpless, Loss of Interest Appearance Appearance- Dress/Hygiene: pt presents in [facility] att[facility] no remarkable features Behaviors Thought Process: Disorganized Thought Content: Auditory Hallucinations, Paranoid, Yazdanism Memory: Impaired Insight: Fair SI/HI Risk Assessment Past Suicidal Ideation/Attempts Yes Current Suicidal Ideation/Att Yes Past Homicidal Ideation/Att: No Current Homicidal Ideation/Attempts No Degree of Intent: Thoughts/No Intent Danger To: Self Lethality Ratin - Conclusion and Recommendations for treatment - and discharge planning
[2017-12-09 19:49] VITALS: BP 139/95
--- NOTE | 2017-12-09 20:10 | SOCIAL WORKER PROG NOTE PSYCH ---
Social Work Progress Note Progress Note When completing the social with the pt, he appeared hypersexual, making comments baout masterbating, "I have to confess I masterbated in the bathroom a little while ago", he goes on to talk about getting righteous wiht aleja and how he is conflicted, with his previous homosexual behaviors, he states it all started " when I was in elementary school I met up with this boy in the bathroom", and he described a lot of ways that would fondle each other, "we licked each others butts and played with each other's poop". ANd after all the "pleasure I get from being with a man, I always feel horrible after, cause of tori and miladys". Pt was disorganized and hyperfocused on judgement, aleja and questioning sexuality.
[2017-12-10 08:00] VITALS: BP 137/81
[2017-12-10 12:48] VITALS: BP 146/89
[2017-12-10 16:01] VITALS: BP 141/80
--- NOTE | 2017-12-10 16:09 | SOCIAL WORKER PROG NOTE PSYCH ---
Social Work Progress Note Progress Note Terrance was in his room reading the New Testament. He met with me when asked to meet. He said he is "doing the best he can" today. Stating he has just been trying to pray. Some ambiguity today about whether God is talking to him or it' s himself or someone else. He said he wants to believe it's God when he needs a sense of encouragement. He said he's been feeling hopeless with "deep despair. " Acknowledged that the voice can be part of his illness, as he has heard actor 's voices in the past. He talked about wanting to be a "good person" but not knowing how to do that. He said he was going to resort to using drugs right before coming here. He has a significant hx of polysubstance use. He said the drugs helped him feel strength and power and a sense of direction. Without drugs he feels lost and is seeking help and guidance. Sounds like he feels vulnerable. Asked what his goals are? He said he has to think about things. He wants to be a good Father to his 2 girls and be able to support them. 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 He said he thinks he'll work on a list of things that he would like to do. He mentioned things like fishing and wanting to go on a whale watch. He is trying to figure out why God put him on this Earth and what his purpose is.
--- NOTE | 2017-12-10 16:19 | CP SOUTH PROGRESS NOTE PSYCH ---
Psych (Inpt) Progress Note Progress Note Vital Signs Date Time Temp Pulse Resp B/P B/P Pulse O2 FiO2 12/10 1601 87 141/80 12/10 1248 78 146/89 12/10 0800 97.1 79 137/81 12/09 1949 97.9 83 139/95 Mental Status Examination Ambulation Status: The patient was steady on his feet. Appearance: Bearded tall and overweight male Cooperative Normal psychomotor activity No abnormal or bizarre behaviors, No pressure in his speech. Seems to have good range of affect. Patient denied feeling depressed. Patient denied thinking of suicide or wishing . Patient denied having violent thoughts or thoughts of homicide. Patient denied hallucinations in the past 24 hours but it seems that he has experienced auditory hallucinations recently The patient does have paranoid delusions as well as congregational delusions. Did not seem to have difficulties with thought organization, he was coherent despite his delusions, Impaired insight Impaired judgment He was alert and oriented to time, place, and person. Seems to have minor difficulties with attention and concentration. Did not seem to have any impairment in his short-term memory. Assessment: 32-year-old man with long-standing substance abuse history with strong family history for bipolar disorder presenting with months of psychotic symptoms in the absence of any recent active substance use, accompanied by significant depression, concerning for a psychotic depressive episode, likely with an underlying diagnosis of bipolar disorder. Diagnosis(es): Unspecified Psychotic Disorder Cocaine Use Disorder Treatment Plan: Increase risperidone to 3 mg at bedtime Orientation: He was alert and oriented to time, place, and person. Cognition: Seems to have minor difficulties with attention and concentration. Memory Function: Did not seem to have any impairment in his short-term memory. Estimate of intellectual functioning: Average Assets/Strengths Patient Identified Assets/Strengths: Patient seems to be likable, social, and has a supportive mother. Impression/Plan Impression and Plan: 32-year-old man with long-standing substance abuse history with strong family history for bipolar disorder presenting with months of psychotic symptoms in the absence of any recent active substance use, accompanied by significant depression, concerning for a psychotic depressive episode, likely with an underlying diagnosis of bipolar disorder. Diagnosis(es): Unspecified Psychotic Disorder Cocaine Use Disorder Treatment Plan: Inpatient psychiatric care Change risperidone to 2 mg at bedtime
[2017-12-10 19:54] VITALS: BP 148/79
[2017-12-11 08:01] VITALS: BP 136/87
--- NOTE | 2017-12-11 10:46 | CP SOUTH PROGRESS NOTE PSYCH ---
Psych (Inpt) Progress Note Progress Note Laboratory Tests 12/11 Hemoglobin A1c (4.2 - 5.8 %) 5.5 Triglycerides (<150 mg/dL) 121 Cholesterol (< 200 MG/DL) 156 LDL Cholesterol, Calc (65 - 129 mg/dL) 93 HDL Cholesterol (40 - 60 mg/dL) 39 L Cholesterol/HDL Ratio (0.00 - 4.88 %) 4 Vital Signs Date Time Temp Pulse B/P B/P Pulse O2 FiO2 12/11 1217 70 144/91 12/11 0801 97.4 67 136/87 12/10 1954 97.9 76 148/79 12/10 1601 87 141/80 Mental Status Examination: The nursing staff reported that the patient refused to take his risperidone last night. The patient was alert and oriented to time, place, and person. He was cooperative, normal psychomotor activity, no abnormal or bizarre behaviors, no pressure in his speech. Seems to have good range of affect. Patient denied feeling depressed, patient denied thinking of suicide or wishing . Patient denied having violent thoughts or thoughts of homicide. Patient denied hallucinations in the past 24 hours. The patient does have paranoid as well as jainism delusions. he was coherent despite his delusions, impaired insight and judgment. He Seems to have minor difficulties with attention and concentration. Did not seem to have any impairment in his short-term memory. Assessment: A 32-year-old single male with long-standing substance abuse history with strong family history for bipolar disorder presenting with months of psychotic symptoms in the absence of any recent active substance use, accompanied by significant depression, concerning for a psychotic depressive episode, likely with an underlying diagnosis of bipolar disorder. The patient refused to take risperidone last night, but when discussed today the patient reported that he is willing to resume taking it starting tonight. Diagnoses: Unspecified Psychotic Disorder Cocaine Use Disorder Treatment Plan: Continue risperidone 3 mg at bedtime
--- NOTE | 2017-12-11 12:07 | SOCIAL WORKER PROG NOTE PSYCH ---
Social Work Progress Note Progress Note MARIE RODRIGUEZ [id number] 1985 MARIE RODRIGUEZ [id number] Pended Authorization # Client Authorization # Type of Request [id number] CONCURRENT Date of Admission/ Start of Services Requested From Submission Date 12/08/2017 12/11/2017 12/11/2017
[2017-12-11 12:17] VITALS: BP 144/91
[2017-12-11 15:58] VITALS: BP 140/75
--- NOTE | 2017-12-11 16:21 | SOCIAL WORKER PROG NOTE PSYCH ---
Social Work Progress Note Progress Note Family meeting held with Terrance and his Mother this afternoon. Terrance looked more depressed today than he had when we met yesterday. He was talking alot about not being worthy of being a Father to his children and not having meaning in his life to continue living it. Feels like he is in a deep hole and is not feeling very hopeful in terms of how he sees himself being able to move forward in his current state. He feels tormented by voices and by the judgement/ guilt he is placing on himself. He talked at length about how he feels he should be relieving himself of his sins by telling people what he has done. Mom explained that Terrance mostly feels guilty about things he has fantasized about sexually and then may go and masturbate. We talked about how going forward and telling people these things, would only cause more problems for him and that he never hurt anyone. Talked about how he needs to be able to use better judgement and that right now he is experiencing a depressive episode that is caused by his Bipolar d/o. Explained that by giving the medications a chance to work and with therapy he could possibly start feeling better, but he needs to give it some time and work with people. He tolerated the meeting, but at times appeared overwhelmed and had to put his head on the desk. He said at the end he needed to go lay down. Mom stayed and spent some time talking to Dr. Mayfield about medications and about some of his clinical hx. Mom reported that his Brother who also has Bipolar did well on Lexapro. She does not think Terrance will continue to agree to take the Risperdal. An injectable may be something to consider. Mom asked that Terrance sign a release for [employer]. She asked that a letter be faxed to let them know he was here and that his tox screen was negative. He has court tomorrow and this was needed before 5pm today. I provided a letter and faxed it to [phone].
[2017-12-11 19:41] VITALS: BP 145/91
[2017-12-12 07:48] VITALS: BP 145/67
[2017-12-12 12:21] VITALS: BP 144/79
--- NOTE | 2017-12-12 13:42 | SOCIAL WORKER PROG NOTE PSYCH ---
Social Work Progress Note Progress Note Sat with Terrance and Pb (medical student), who was asking Carlos some in depth substance abuse questions. We ended up shifting the conversation though to how he was doing today. He looked a little brighter and less depressed. He said that he tried the new antidepressant (Lexapro) and he is feeling some physical effects from it that remind him of being high on MDA. Reports that he was reading the Bible today and was focusing more on the positives and hopefulness vs. the doom and despair. He continues to talk about the internal conflict he is having between living a life of God and being high on drugs. Denies SI today. He said he felt so good when he was making amends with people. I told him that he needs have good judgements about what he is telling people when he feels he needs to make amends. I told him there are other ways to get things out, by telling a therapist, writing, or sharing it in confession. An example of what he may want to tell someone: going up to a female and apologizing for starring at her breasts. I told him coming from a female's perspective that may cause her to get nervous of his approach about the matter and he would be better off most likely keeping that to himself. He seemed to engage in our conversation. He was laughing on occasion. Reported that he needed more rest and that after meeting with the medical student he may go lay down. He refused to meet with the wardrobe specialist Renetta Mcknight because he was resting this afternoon.
--- NOTE | 2017-12-12 13:44 | CP SOUTH PROGRESS NOTE PSYCH ---
Psych (Inpt) Progress Note Progress Note Treatment team (WESTLEY, RN, OTR/L & Activities Therapist, Psychiatrist) discussed the Pt.'s progress, treatment plan, and aftercare plans. Vital Signs Date Time Temp Pulse B/P 12/12 1221 68 144/79 12/12 0748 97.2 66 145/67 12/11 1941 97.3 65 145/91 Mental Status Examination: The nursing staff reported that the patient refused to take his risperidone last night. The patient was alert and oriented to time, place, and person. He was cooperative, normal psychomotor activity, no abnormal or bizarre behaviors, no pressure in his speech. Seems to have good range of affect. Patient denied feeling depressed, patient denied thinking of suicide or wishing . Patient denied having violent thoughts or thoughts of homicide. Patient denied hallucinations in the past 24 hours. The patient does have paranoid as well as presybeterian delusions. he was coherent despite his delusions, impaired insight and judgment. He Seems to have minor difficulties with attention and concentration. Did not seem to have any impairment in his short-term memory. Assessment: A 32-year-old single male with long-standing substance abuse history with strong family history for bipolar disorder presenting with months of psychotic symptoms in the absence of any recent active substance use, accompanied by significant depression, concerning for a psychotic depressive episode, likely with an underlying diagnosis of bipolar disorder. Diagnoses: Unspecified Psychotic Disorder Cocaine Use Disorder Treatment Plan: Continue Haloperidol 5 mg at bedtime Escitalopram Oxalate 10 MG DAILY Lorazepam 1 MG AT BEDTIME Al Hydroxide/Mg 30 ML Q4P PRN 12/08 1400 AC Hydroxide PO Benztropine Mesylate 1 MG Q6P PRN 12/09 1315 AC Escitalopram Oxalate 10 MG DAILY 12/11 1529 AC 12/12 Haloperidol 5 MG AT BEDTIME 12/11 2100 AC 12/11 PO 2148 Haloperidol 5 MG Q6P PRN 12/09 1315 AC Lorazepam 1 MG Q4P PRN 12/11 1415 AC PO Lorazepam 1 MG AT BEDTIME 12/09 2100 AC 12/11 PO 2149 Lorazepam 2 MG Q6P PRN 12/09 1315 AC PO Lorazepam 0.5 MG Q4P PRN 12/09 1315 DC PO 12/15 1359 Magnesium Hydroxide 30 ML AT BEDTIME NEED.. 12/08 1400 AC PO Nicotine 7 MG DAILY 12/09 0900 AC 12/12 TOP 0920 Nicotine 2 MG Q2P PRN 12/08 1445 AC PO Risperidone 3 MG AT BEDTIME 12/10 2100 DC PO Sertraline HCl 50 MG DAILY 12/09 1304 DC 12/11 PO 0847
[2017-12-12 15:51] VITALS: BP 145/77
[2017-12-12 19:54] VITALS: BP 147/85
[2017-12-13 07:54] VITALS: BP 143/55
[2017-12-13 12:05] VITALS: BP 139/79
--- NOTE | 2017-12-13 12:18 | CP SOUTH PROGRESS NOTE PSYCH ---
Psych (Inpt) Progress Note Progress Note Treatment team (WESTLEY, RN, OTR/L & Activities Therapist, Psychiatrist) discussed the Pt.'s progress, treatment plan, and aftercare plans. Mental Status Examination: The patient was alert & oriented to time, place, and person. He was cooperative, no abnormal or bizarre behaviors, and no pressure in his speech. Patient denied feeling depressed and showed a good range of affect. He denied thinking of suicide or wishing . Patient denied having violent thoughts or thoughts of homicide. Patient denied hallucinations. The patient still voicing presybeterian delusions and stated that "he's ready to go to [facility]", the patient quoted the Bible repeatedly including the contempt for the pleasures of the flesh in this lifetime. coherent despite his delusions, impaired insight and judgment, minor difficulties with attention and concentration. Did not seem to have any impairment in his short-term memory. Assessment: Terrance is a 32-year-old Single Bi-Racial Male (Black and White) with long-standing substance abuse history with strong family history for bipolar disorder presenting with months of psychotic symptoms in the absence of any recent active substance use, accompanied by significant depression, concerning for a psychotic depressive episode, likely with an underlying diagnosis of bipolar disorder. Diagnoses: Unspecified Psychotic Disorder Cocaine Use Disorder Treatment Plan: Reduce Lorazepam to 0.5 mg AT BEDTIME Continue Haloperidol 5 mg at bedtime Continue Escitalopram 10 MG DAILY
[2017-12-13 15:43] VITALS: BP 144/72
[2017-12-13 20:01] VITALS: BP 134/76
[2017-12-14 07:59] VITALS: BP 152/74
[2017-12-14 11:58] VITALS: BP 122/69
--- NOTE | 2017-12-14 12:18 | CP SOUTH PROGRESS NOTE PSYCH ---
Psych (Inpt) Progress Note Progress Note Vital Signs Date Time Temp Pulse B/P B/P Pulse O2 O2 Flow FiO2 12/14 1158 75 122/69 12/14 0759 97.3 70 152/74 12/13 2000 97.8 69 134/76 Mental Status Examination: The patient appears to be more withdrawn and likes to spend most of his time in his room. He was not interested in the interview and answered a few questions briefly. He reported that he is slowly feeling better. He denies any major side effects from the Haldol. But he did not seem to be excited about taking it. He was alert & oriented to time, place, and person. He was cooperative, no abnormal or bizarre behaviors, and no pressure in his speech. Patient denied feeling depressed and showed a good range of affect. He denied thinking of suicide or wishing . Patient denied having violent thoughts or thoughts of homicide. Patient denied hallucinations. The patient still voicing yazdanism delusions and stated that "he's ready to go to [facility]", the patient quoted the Bible repeatedly including the contempt for the pleasures of the flesh in this lifetime. coherent despite his delusions. Assessment: Terrance is a 32-year-old Single Bi-Racial Male (Black + White) presenting with psychotic symptoms in the absence of any recent active substance use, accompanied by significant depression, concerning for a psychotic depressive episode, likely with an underlying diagnosis of bipolar disorder. Since his admission, the patient's medication was switched to Haldol at bedtime 5 mg. He has been taking good showing gradual improvement. But he remains withdrawn and spending a lot of time in his room. Diagnoses: Unspecified Psychotic Disorder Cocaine Use Disorder Treatment Plan: Continue Lorazepam 0.5 mg AT BEDTIME Continue Haloperidol 5 mg at bedtime Continue Escitalopram 10 MG DAILY
[2017-12-14 15:52] VITALS: BP 148/81
[2017-12-14 19:56] VITALS: BP 147/76
[2017-12-15 08:12] VITALS: BP 143/79
[2017-12-15 12:16] VITALS: BP 129/83
--- NOTE | 2017-12-15 15:12 | SOCIAL WORKER PROG NOTE PSYCH ---
Social Work Progress Note Progress Note The services requested require additional review. You will be contacted regarding the status of this request if further information is needed. An authorization decision will be made within the required timeframes and details of that decision may be found under the member's authorization history. Member Name Member ID Member Subscriber Name Subscriber ID MARIE RODRIGUEZ [id number] MARIE RODRIGUEZ [id number] Pended Authorization # Client Authorization # Type of Request [id number] CONCURRENT Date of Admission/ Start of Services Requested From Submission Date 12/08/2017 12/15/2017 12/15/2017 Level of Service Type of Service Level of Care Type of Care INPATIENT/HLOC [facility]patient [facility] Reason Code P76 Provider Name & Address Provider ID Provider Alternate ID NPI # for Authorization MARLENI FRANK [id number] [place] [id number]
[2017-12-15 15:59] VITALS: BP 143/74
--- NOTE | 2017-12-15 16:50 | SOCIAL WORKER PROG NOTE PSYCH ---
Social Work Progress Note Progress Note Terrance presented as more depressed today when we met. He stated he spent alot of time in his room over the weekend trying to talk to God. He continues to talk about wanting to be relieved of his sins. I asked how he would know if God forgave him? He said he wouldn't but could only hope. He is continuing to struggle with the idea of living his life in this manner. He said "I'm tired of this planet and just want to move on." Admitted to feeling suicidal yesterday. He is trying to work through things today and be more hopeful. Enjoyed playing bocce ball on the unit and going to a group. Encouraged him to do more of that tomorrow. He is focused on the fact that he has the "sandra of the beast" on his forearm and that he is "doomed."
--- NOTE | 2017-12-15 19:03 | CP SOUTH PROGRESS NOTE PSYCH ---
Psych (Inpt) Progress Note Progress Note Vital Signs Date Time Temp Pulse B/P B/P Pulse O2 O2 Flow FiO2 12/15 1559 74 143/74 12/15 1216 79 129/83 12/15 0812 97.1 70 143/79 Mental Status Examination: pt. more visible today, however, he remains depressed (his report) and looked more irritable/restless denies any major side effects from the Haldol. But he did not seem to be excited about taking it. He was alert & oriented to time, place, and person. He was cooperative, no abnormal or bizarre behaviors, and no pressure in his speech. denied thinking of suicide or wishing but thinks of and believes it is a quick way to go to [facility], denied having violent thoughts or thoughts of homicide. Patient denied hallucinations still voicing hoahaoism delusions and stated that "he's ready to go to [facility]", the patient quoted the Bible repeatedly coherent despite his delusions. Assessment: Terrance is a 32-year-old Single Bi-Racial Male (Black of [place] extraction ) presenting with psychotic symptoms in the absence of any recent active substance use, accompanied by significant depression, concerning for a psychotic depressive episode, likely with an underlying diagnosis of bipolar disorder. Since his admission, the patient's medication was switched to Haldol at bedtime 5 mg. He has been taking good showing gradual improvement. But he remains withdrawn and spending a lot of time in his room. Diagnoses: Unspecified Psychotic Disorder Cocaine Use Disorder Treatment Plan: Continue Lorazepam 0.5 mg AT BEDTIME Continue Haloperidol 5 mg at bedtime Increase Escitalopram to 20 MG DAILY Current Medications
[2017-12-15 19:31] VITALS: BP 141/81
[2017-12-16 08:11] VITALS: BP 131/84
[2017-12-16 11:57] VITALS: BP 138/79
--- NOTE | 2017-12-16 13:32 | CP SOUTH PROGRESS NOTE PSYCH ---
Psych (Inpt) Progress Note Progress Note Vital Signs Date Time Temp Pulse B/P B/P Pulse O2 12/16 1157 78 138/79 12/16 0811 97.6 78 131/84 12/15 1931 97.0 76 141/81 Mental Status Examination: The patient continues to have delusions mostly of gnosticism nature Although he is not incoherent, there is a thought disorder and some difficulties following his logic He is unable to answer whether he is depressed or not (reporting that he was happy and he was depressed in the same conversation) He is able to tolerate only short conversations and gets restless and irritable after a few moments He seems to have low opinion of psychotropic medications. He was alert & oriented to time, place, and person. He was cooperative to a certain degree, no abnormal or bizarre behaviors, and no pressure in his speech. He seems to have a fatalistic view of life and is not very reassuring when he is questions about thoughts of suicide Denied having violent thoughts or thoughts of homicide. Although the patient is denying hallucinations it seems that he may be responding to internal stimuli (usually he is in his room sitting at the edge of the bed staring either at the water out of the window and he claims that he is meditating or relaxing) Assessment: Terrance is a 32-year-old Single Multi-Ethnic male (Black of [facility]) presenting with psychotic symptoms in the absence of any recent active substance use. So far there has been minimal improvement in the patient's mental state. He continues to be religiously religiously preoccupied with multiple delusions of gnosticism nature fatalistic view of life and talking about going to [facility] or not caring for the pleasures of the flesh over this life in general Diagnoses: Unspecified Psychotic Disorder Cocaine Use Disorder Treatment Plan: Continue Lorazepam 0.5 mg AT BEDTIME Continue Haloperidol 5 mg at bedtime continue Escitalopram 20 MG DAILY Benztropine Mesylate 1 MG Q6P PRN 12/09 1315 AC Cyclobenzaprine HCl 10 MG Q6-PRN PRN 12/15 1400 AC Haloperidol 5 MG Q6P PRN 12/09 1315 AC Lorazepam 1 MG Q4P PRN 12/11 1415 AC Magnesium Hydroxide 30 ML AT BEDTIME NEED.. 12/08 1400 AC Nicotine 7 MG DAILY 12/09 0900 AC
[2017-12-16 15:38] VITALS: BP 142/94
--- NOTE | 2017-12-16 15:45 | SOCIAL WORKER PROG NOTE PSYCH ---
Social Work Progress Note Progress Note Terrance met with Renetta Mcknight [employer] Program Technician technology internship this afternoon. He was hesitant at first stating he saw her smiling and didn't want to ruin her day. I told him he was not that powerful in terms of controlling her emotions. He did end up meeting with her. After the meeting, he told me it was a good meeting and again stated he hoped he didn't ruin her day. He shared that he was spending time reading the Bible and praying. I asked if reading the Bible was providing hope to him or more anxiety ? He said he was focusing on a good passage and it was giving him hope. Shared that I was going to be out the next few days and he will be seen by another director of social services.
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
[2017-12-16 20:02] VITALS: BP 137/89
[2017-12-17 07:44] VITALS: BP 141/77
[2017-12-17 12:19] VITALS: BP 132/66
--- NOTE | 2017-12-17 12:35 | CP SOUTH PROGRESS NOTE PSYCH ---
Psych (Inpt) Progress Note Progress Note Vital Signs Date Time Temp Pulse Resp B/P B/P Pulse O2 O2 Flow FiO2 12/17 1219 68 132/66 12/17 0744 97.1 73 141/77 12/16 2001 98.1 69 137/89 Mental Status Examination: Terrance continues to have delusions (of temple themes), minor thought disorder, Patient's logical hard to follow at times, unable to decide whether he is depressed or not He is unable to tolerate long conversations (gets restless and irritable after a few moments) Yesterday he had low opinion of psychotropic medications, but today he is asking for Haldol and Ativan. He was alert & oriented to time+ place + person. Marginally cooperative no pressure in his speech. His mother called this morning and she reported that yesterday he was talking about suicide, she started crying and reported that she is really worried that he might do it if released Terrance denied having violent thoughts or thoughts of homicide. Although the patient is denying hallucinations it seems that he may be responding to internal stimuli Assessment: Terrance is a 32-year-old Single Multi-Ethnic male (Black of [place] extraction) presenting with psychotic symptoms in the absence of any recent active substance use. Since his admission on 12/08/2017, there has been very minimal -if any- improvement in the patient's mental state: continues to be religiously preoccupied with multiple delusions and fatalistic view of life and talking about suicide in order to go to pending sale to [facility] Diagnoses: Unspecified Psychotic Disorder Cocaine Use Disorder Treatment Plan Update: At 12:45 PM order was written to give the patient 5 mg of Haldol and 1 mg of Ativan once Continue Lorazepam 0.5 mg AT BEDTIME Increase Haldol to 10 mg at bedtime continue Escitalopram 20 MG DAILY Add 50 mg of Benadryl at bedtime to prevent extrapyramidal side effects/dystonia Continue cyclobenzaprine 10 MG Q6-PRN back pain Haloperidol 5 MG Q6P PRN 12/09 1315 AC Lorazepam 1 MG Q4P PRN 12/11 1415 AC
--- NOTE | 2017-12-17 14:47 | SOCIAL WORKER PROG NOTE PSYCH ---
See Addendum Social Work Progress Note Progress Note scheduled intake for Dual IOP [facility] [address] [facility]#[phone] Intake . 12/23 at 10am with Yvette ( for Dual IOP patient needs to be off Benzos - informed Dr. Kearns) Met with Terrance this morning. He was in bed at around 11am and came out of his room to meet. He stated he had SI this morning - "I didn't want to be here anymore." Then he said when he just got up he felt better, no SI now. He stated he is writing and thought of things and then heard "You are forgiven." He said the things he was forgiven for - was "saying bad things about Devang." He rates anxiety 01/30(worst) and depression 01/30. Reports he slept Ok last night. Denied VH. Reports some AH - "intrusice thoughts are happening now.: He stated its a 'constant dialogue." He finds the most helpful thing about being inpatient is "the bed and the food." Discussed discharge planning with Terrance. He states he wants to go to [facility]. He was there before in the past. Then he said he doesn't want to go anywhere for aftercare. Discussed how staying in treatment will help with court. It will help him stay out of trouble. He agrees and stated "I have 5 years over my head." He has an compliance attorney and he thinks his court date was postponed for 30 days. He needs to call his It Specialist or courthouse to find out next court date. He said allegations were for trespassing. He seemed more hopeful and less ambivalent when discussed court and engaging in treatment, stayin on medications - so the provider can give updates to his compliance attorney and court that are positive. He agreed, his affect seemend to brighten. He did state he is having difficulty with the thought of facing court.
[2017-12-17 16:23] VITALS: BP 139/74
[2017-12-17 19:36] VITALS: BP 146/87
[2017-12-18 07:45] VITALS: BP 105/70
--- NOTE | 2017-12-18 11:06 | SOCIAL WORKER PROG NOTE PSYCH ---
Social Work Progress Note Progress Note Pt met with rehabilitation nurse, he states court will not be a problem, and he was cooperative during the day, he offers "I dont want to commit suicide, but I don' t care if I wake up in the morning", pt states "I just want to sit here and watch the fish", shortly after he went to lay down. Pt aware discharge planning is in place. Pt has been attending groups, but remains isolating and symptomatic.
[2017-12-18 12:00] VITALS: BP 137/73
--- NOTE | 2017-12-18 15:33 | CP SOUTH PROGRESS NOTE PSYCH ---
Psych (Inpt) Progress Note Progress Note Vital Signs Date Time Temp Pulse B/P B/P Pulse O2 O2 Flow FiO2 12/18 1200 71 137/73 12/18 0745 97.4 68 105/70 12/17 1936 97.9 70 146/87 Mental Status Examination: Terrance continues to have delusions of baptism themes and a minor thought disorder, Patient's logic is hard to follow at times, Today, he acknowledged that he was feeling depressed but he denied thinking of suicide today. He is unable to tolerate long conversations (gets restless and irritable after a few moments). He was alert & oriented to time+ place + person. no pressure in his speech. Terrance denied having violent thoughts or thoughts of homicide. Although the patient is denying hallucinations it seems that he may be responding to internal stimuli Assessment: Terrance is a 32-year-old Single Multi-Ethnic male (Black [place]-White extraction) presenting with psychotic symptoms in the absence of any recent active substance use. Since his admission on 12/08/2017, there has been mild improvement in the patient 's mental state: today, he was--relatively speaking--less religiously preoccupied and less fatalistic in his view of life (he did not talk of suicide or going to heaven ) Diagnoses: Unspecified Psychotic Disorder Cocaine Use Disorder Treatment Plan Update: Increase Lorazepam to 1 mg AT BEDTIME Continue Haldol 10 mg at bedtime continue Escitalopram 20 MG DAILY Continue all other medications unchanged
[2017-12-18 15:54] VITALS: BP 140/68
[2017-12-18 19:19] VITALS: BP 136/81
[2017-12-19 07:51] VITALS: BP 142/87
[2017-12-19 12:10] VITALS: BP 132/79
--- NOTE | 2017-12-19 12:32 | CP SOUTH PROGRESS NOTE PSYCH ---
Psych (Inpt) Progress Note Progress Note Vital Signs Date Time Temp Pulse Resp B/P B/P Pulse O2 O2 Flow FiO2 12/19 1210 74 132/79 12/19 0751 97.5 75 142/87 12/18 1919 98.4 72 136/81 12/18 1554 80 140/68 Mental Status Examination: Terrance was alert and oriented to time, place, and person. He continues to have delusions of anabaptist themes and a minor thought disorder, Patient's logic is hard to follow at times, depressed but he denied thinking of suicide today. He is unable to tolerate long conversations (gets restless and irritable after a few moments). no talkativeness, and no pressure in his speech. Terrance denied having violent thoughts or thoughts of homicide. Although the patient is denying hallucinations it seems that he may be responding to internal stimuli Assessment: Terrance is a 32-year-old Single Multi-Ethnic male (Black [place]White extraction) presenting with psychotic symptoms in the absence of any recent active substance use. Since his admission on 12/08/2017, there has shown very modest improvement ( relatively speaking--less religiously preoccupied and less fatalistic in his view of life (he did not talk of suicide or going to heaven today) Diagnoses: Unspecified Psychotic Disorder Cocaine Use Disorder Treatment Plan Update: Continue lorazepam 1 mg AT BEDTIME Continue Haldol 10 mg at bedtime continue Escitalopram 20 MG DAILY Continue all other medications unchanged
--- NOTE | 2017-12-19 14:55 | SOCIAL WORKER PROG NOTE PSYCH ---
Social Work Progress Note Progress Note Quiller Operator was able to meet with pt. Pt was in bed napping. Pt denies, SI, HI, VH and AH at this time. Pt reports doing better and going to some groups that are "okay." Pt reports his thoughts as "pretty good" today. Pt reports not reading the bible due to it "scaring me." Pt reports that he has stopped because of what the bible states happens to bad people. Pt denies thoughts being put into his head. Pt reports mom coming to visit him at 4pm today.
--- NOTE | 2017-12-19 15:00 | SOCIAL WORKER PROG NOTE PSYCH ---
Social Work Progress Note Progress Note Completed online concurrent review for Dinorah. Auth is pended.
[2017-12-19 15:41] VITALS: BP 142/83
[2017-12-19 19:28] VITALS: BP 140/65
[2017-12-20 07:57] VITALS: BP 140/89
[2017-12-20 12:34] VITALS: BP 116/73
[2017-12-20 15:56] VITALS: BP 129/67
[2017-12-20 20:03] VITALS: BP 144/81
--- NOTE | 2017-12-20 21:24 | CP SOUTH PROGRESS NOTE PSYCH ---
Psych (Inpt) Progress Note Progress Note Chief Complaint Discussed overnight events with RN and staff. As per RN report, the patient appeared to be sleeping throughout the night. No PRNs/restrains required in the last 24hrs. I saw the patient this morning with the treatment team. He reported feeling good although he continues to be psychotic, delusional and elated but in less intensity. He has not talk about previously reported bizarre delusion neither muslim delusions, although he appeared paranoid, guarded and inappropriately smiling throughout the interview. He denies hallucinations although he appeared responding to internal stimuli. He denies suicidal/homicidal thoughts/intent/plans at present. He is visible in the unit interacting with peers. He has adequate appetite and fair sleep. He is compliant to medications, no side effects reported and none in evidence. Vitals reviewed Vital Signs Result Date Time B/P 144/81 12/20 2002 Temp 98.8 12/20 2002 Pulse 71 12/20 2002 Pulse Ox 98 12/08 1153 O2 Delivery Room Air 12/08 1153 Resp 18 12/08 1153 Mental Status Examination Consciousness: Awake, alert Orientation: A&O x3, oriented to person, place, year not to situation Appearance: appears stated age, dressed in casual attire, fair hygiene Behavior: calm and cooperative Attitude: guarded Eye Contact: staring Speech: spontaneous, fluent, clear with regular rate and rhythm but need prompting, answers in single words Mood: good Affect: mood-congruent, constricted to elated with full reactivity Thought Process: organized Thought Content: less delusional, elated, paranoid, denies suicidal/homicidal ideations at the time of the interview, no delusions elicited/verbalized at present Perceptions: denies audiovisual hallucinations, but appears RTIS as evident by inappropriate smiling Attention: distractible Memory: grossly intact Insight: limited Judgment: limited Slight psychomotor excitability noted Motor: no abnormal movements, Gait WNL Neuro: grossly intact Independent in ADL's and iADL's Labs Reviewed as documented in chart. Allergy Reviewed as documented in chart. Medications Reviewed as documented in chart. Current Medications Sig/Julieta Start time Last Medication Dose Route Stop Time Status Admin Acetaminophen 650 MG Q4P PRN 12/08 1400 AC PO Al Hydroxide/Mg 30 ML Q4P PRN 12/08 1400 AC Hydroxide PO Benztropine Mesylate 1 MG Q6P PRN 12/09 1315 AC PO Cyclobenzaprine HCl 10 MG Q6-PRN PRN 12/15 1400 AC PO Diphenhydramine HCl 50 MG AT BEDTIME PRN 12/17 1330 AC 12/17 PO 1938 Escitalopram Oxalate 20 MG DAILY 12/16 0900 AC 12/20 PO 1027 Haloperidol 10 MG AT BEDTIME 12/17 2100 AC 12/20 PO 1958 Lorazepam 1 MG AT BEDTIME 12/18 2100 AC 12/20 PO 195 Lorazepam 1 MG Q6P PRN 12/17 1330 AC 12/20 PO 1554 Magnesium Hydroxide 30 ML AT BEDTIME NEED.. 12/08 1400 AC PO Nicotine 7 MG DAILY 12/09 09 AC 12/20 TOP 1028 Nicotine 2 MG Q2P PRN 12/08 1445 AC PO Assessment Terrance is a 32-year-old Multi-Ethnic male patient who presented with psychotic sxs. Although he appeared less delusional today (muslim, bizarre), he is more elated and inappropriate. Diagnosis Unspecified Psychotic Disorder Cocaine Use Disorder Treatment Plan Continue current medication regimen
[2017-12-21 07:54] VITALS: BP 132/79
[2017-12-21 11:46] VITALS: BP 124/60
[2017-12-21 15:59] VITALS: BP 129/70
--- NOTE | 2017-12-21 18:06 | CP SOUTH PROGRESS NOTE PSYCH ---
Psych (Inpt) Progress Note Progress Note Chief Complaint Discussed overnight events with RN and staff. No PRNs/restrains required in the last 24hrs. As per RN report, the patient slept well. I saw the patient this morning with the treatment team. He reported feeling better he reported hearing voices sometimes did not elaborate on the content. He denies suicidal/homicidal ideation at present. He is compliant to medications , no side effects reported. Vitals reviewed Vital Signs Result Date Time B/P 135/70 12/21 2014 Temp 96.7 12/21 2014 Pulse 71 12/21 2014 Pulse Ox 98 12/08 115 O2 Delivery Room Air 12/08 1153 Resp 18 12/08 1153 Mental Status Examination Consciousness: Awake, alert Orientation: A&O x3, oriented to person, place, year not to situation Appearance: appears stated age, dressed in casual attire, fair hygiene, lying in bed Behavior: calm and cooperative Attitude: guarded Eye Contact: staring Speech: spontaneous, fluent, clear with regular rate and rhythm but need prompting, answers in single words Mood: good Affect: mood-congruent, constricted to elated with full reactivity Thought Process: organized Thought Content: less delusional, denies suicidal/homicidal ideations at the time of the interview, no delusions elicited/verbalized at present Perceptions: reported occasional audiovisual hallucinations Attention: distractible at times Memory: grossly intact Insight: limited Judgment: limited No psychomotor abnormalities Motor: no abnormal movements Neuro: grossly intact Independent in ADL's and iADL's Labs Reviewed as documented in chart. Allergy Reviewed as documented in chart. Medications Reviewed as documented in chart. Current Medications Sig/Julieta Start time Last Medication Dose Route Stop Time Status Admin Acetaminophen 650 MG Q4P PRN 12/08 1400 AC PO Al Hydroxide/Mg 30 ML Q4P PRN 12/08 1400 AC Hydroxide PO Benztropine Mesylate 1 MG Q6P PRN 12/09 1315 AC PO Cyclobenzaprine HCl 10 MG Q6-PRN PRN 12/15 1400 AC PO Diphenhydramine HCl 50 MG AT BEDTIME PRN 12/17 1330 AC 12/17 PO 193 Escitalopram Oxalate 20 MG DAILY 12/16 0900 AC 12/21 PO 0849 Haloperidol 10 MG AT BEDTIME 12/17 2100 AC 12/20 PO 1958 Lorazepam 1 MG AT BEDTIME 12/18 2100 AC 12/20 PO 195 Lorazepam 1 MG Q6P PRN 12/17 1330 AC 12/21 PO 1702 Magnesium Hydroxide 30 ML AT BEDTIME NEED.. 12/08 1400 AC PO Nicotine 7 MG DAILY 12/09 0900 AC 12/21 TOP 0849 Nicotine 2 MG Q2P PRN 12/08 1445 AC PO Assessment Terrance is a 32-year-old Multi-Ethnic male patient who presented with psychotic sxs. Although he appeared less delusional today (sabianism, bizarre), he is more elated and inappropriate. Diagnosis Unspecified Psychotic Disorder Cocaine Use Disorder Treatment Plan Continue current medication regimen
[2017-12-21 20:15] VITALS: BP 135/70
[2017-12-22 07:52] VITALS: BP 131/73
[2017-12-22 12:12] VITALS: BP 120/60
--- NOTE | 2017-12-22 14:52 | CP SOUTH PROGRESS NOTE PSYCH ---
Psych (Inpt) Progress Note Progress Note Vital Signs Date Time Temp Pulse B/P 12/22 1522 79 113/64 12/22 1212 78 120/60 12/23 751 96.5 68 131/73 12/21 2014 96.7 71 135/70 Mental Status Examination: he acknowledged recent hallucinations (hears the voice of a "rich white dude") alert and oriented to time, place, and person much less delusional today (he did not bring up any restorationist delusions today) no thought disorder noted today seemed to be in very good spirits, depressed but he denied thinking of suicide today. He is unable to tolerate long conversations (gets restless and irritable after a few moments). no talkativeness, and no pressure in his speech. Terrance denied having violent thoughts or thoughts of homicide. Assessment: Terrance is a 32-year-old Single Multi-Ethnic male (Black Hondoran-White extraction) presenting with psychotic symptoms in the absence of any recent active substance use. Since his admission on 12/08/2017, there has shown improvement Diagnoses: Unspecified Psychotic Disorder Cocaine Use Disorder Treatment Plan Update: Continue lorazepam 1 mg AT BEDTIME Continue Haldol 10 mg at bedtime continue Escitalopram 20 MG DAILY Continue all other medications unchanged
--- NOTE | 2017-12-22 15:16 | SOCIAL WORKER PROG NOTE PSYCH ---
Social Work Progress Note Progress Note Terrance was sleeping in his room at 3pm. Woke up when I prompted him. He reported feeling really sleepy due to starting the Neurontin today. Taken off Ativan, due to not being able to be on a benzo in dual IOP. He reported symptom/ mood improvement since I last saw him. Stated he is feeling more hopeful about things and less depressed. Feels he will be ready to discharge in the next couple of days. Asked if he went to group today? He said he went to 2 groups, but couldn't stay for the whole meeting on stress. He reported he felt stressed talking about stress and needed to get up and take a walk. I asked how he would be able to tolerate IOP? He said he wasn't sure. I encouraged him to make it his goal tomorrow to attend groups to see how he does.
[2017-12-22 15:22] VITALS: BP 113/64
[2017-12-22 19:45] VITALS: BP 135/72
[2017-12-23 07:55] VITALS: BP 140/71
--- NOTE | 2017-12-23 09:09 | SOCIAL WORKER PROG NOTE PSYCH ---
Social Work Progress Note Progress Note Called [facility] to reschedule Terrance's appt. for this morning. I spoke with Ella. She reported that the appt. was not for today, but for at 10am with Sue. Met with Terrance who reported that he was trying to go to groups today. He said he lost interest at the last group he attended and left 15 minutes early. He said after awhile depending on the topic he loses interest and can't focus. He reports this is different for him. He feels a little more restless or "antsy". Denies voices today. He was not religiously focused during our conversation, which is a change. He feels he is ready to go home. He is ready to help his Mom around the house. Mood is better. Rates his depression at a 5 today on a scale from 0-10, 10 being most severe. He said he thinks it will improve more with activities and things to do once he gets back home. Reports some anxiety over groups. I told him we are looking to d/c him and that I would speak to his Mother about that plan. Called Ms. Bains, she indicated that the last time she saw Terrance was on Friday and that he seemed to be improved. She stated he was polite and was paying attention to things that he hadn't cared about in a while. She is okay with him returning home , but would like to spend time talking to the doctor about his meds. I told her that he has an intake on at 10am to return to [facility] at [facility]. She seemed to think that another intake was not necessary and that he could just return. She said she has stopped by the [facility] 2x's to keep them posted. I told her that we would look into that and that I would call her back. After further discussion, it seems that he wouldn't need to have an intake and can just resume services. I called Terrance's Mother and scheduled her to come for a meeting here at 10:30am . If all is well he will d/c home with her after that meeting.
[2017-12-23 12:11] VITALS: BP 134/81
--- NOTE | 2017-12-23 13:37 | CP SOUTH PROGRESS NOTE PSYCH ---
Psych (Inpt) Progress Note Progress Note Vital Signs Date Time Temp Pulse B/P B/P O2 FiO2 12/23 1211 67 134/81 12/23 0755 96.9 68 140/71 12/22 1945 97.5 67 135/72 12/22 1522 79 113/64 Mental Status Examination: The patient reported that hallucinations are much less frequent and very manageable. He was alert and oriented to time, place, and person Today, he was much less delusional and did not bring up any pentecostal delusions no thought disorder noted today,, he seemed to be in very good spirits, he denied feeling depressed and denied thinking of suicide today. His speech was normal, no talkativeness, and no pressure in his speech. Terrance denied having violent thoughts or thoughts of homicide. Assessment: Terrance is a 32-year-old Single Multi-Ethnic male (Black Hondoran-White extraction) presenting with psychotic symptoms in the absence of any recent active substance use. Since his admission on 12/08/2017, there has moderate improvement in his mood and thought process. He has been denying thoughts of suicide for the second day in a row Diagnoses: Unspecified Psychotic Disorder Cocaine Use Disorder Treatment Plan Update: reduce lorazepam to 0.5 mg AT BEDTIME Continue Haldol 10 mg at bedtime continue Escitalopram 20 MG DAILY Continue all other medications unchanged
[2017-12-23 15:48] VITALS: BP 141/75
[2017-12-23 20:06] VITALS: BP 131/79
[2017-12-24 07:48] VITALS: BP 133/75
[2017-12-24 12:00] VITALS: BP 141/81
--- NOTE | 2017-12-24 12:42 | CP SOUTH PROGRESS NOTE PSYCH ---
Psych (Inpt) Progress Note Progress Note Include the following elements, when applicable: Involvement in the active treatment of the patient with behavioral observations of the patient and the patient's response to the treatment. Review of the ongoing treatment process in the context of the treatment plan. Indication of how multi-disciplinary staff members are carrying out the treatment plan. Plans for future interventions and recommendations for revision of the treatment plan. Liaison with other physicians/providers. Progress Note: Pleasant and cooperative, without any complaints. Stated that he is looking forward to discharge tomorrow, and plans to attend his IOP appointment. Mood is good and he has no difficulties with depression or other complaints. No medication AE. He stated that he has not been having any voices. Does not feel antsy, explained that yesterday it was likely due to change from ativan to gabapentin. MSE: young man, calm, good eye contact. Adequate grooming and hygiene. Speech is regular volume and rate. Mood is neutral and affect is constricted but reactive. His thinking is logical and goal directed. There is no evidence of delusional thinking during our discussion, no current depressive thoughts or thoughts to harm herself or anyone else. There are no hallucinations. Insight and judgment are adequate, and cognition appears grossly intact. 32 year old man with a history of psychotic illness, presented psychotic, who has been stabilizing clinically. He is preparing for discharge likely tomorrow and appears to be doing well. Continue current plan of care.
[2017-12-24 15:47] VITALS: BP 107/59
[2017-12-24 19:45] VITALS: BP 129/68
[2017-12-25 07:52] VITALS: BP 121/65
[2017-12-25] MEDS ORDERED: NEURONTIN600 M1 PO (08:58)
[2017-12-25] MEDS ORDERED: VENTOLIN HFA18 GM INH (08:58)
[2017-12-25] MEDS ORDERED: NICOTINE PATCH1 EAC1 TOP (08:58)
[2017-12-25] MEDS ORDERED: LEXAPRO20 M1 PO (08:59)
[2017-12-25] MEDS ORDERED: HALOPERIDOL10 M1 PO (09:00)
--- NOTE | 2017-12-25 09:05 | Patient Discharge Instructions ---
Psych Discharge Inst General Discharge Information Reason for Admission: depression and ideas of reference Psy Discharge Primary Diag+ Psychotic Disorder Summary Tests/Major Procedures Lab Cholesterol 156 MG/DL 12/11/17 0647 Cholesterol/HDL Ratio 4 % 12/11/17 0647 HDL Cholesterol 39 mg/dL L 12/11/17 0647 Hemoglobin A1c 5.5 % 12/11/17 0647 LDL Cholesterol, Calc 93 mg/dL 12/11/17 0647 Triglycerides 121 mg/dL 12/11/17 0647 Studies Pending at DC: None Patient Instructions Contact Information Your Psychiatrist on [facility] was Shawn Mayfield MD * If you are experiencing an emergency related to this hospitalization, please call [phone] to contact the treating psychiatrist or the psychiatrist-on- call. * To Request a copy of your medical records, please contact the Medical Records Department at [phone]. * To request results of studies pending at the time of discharge, please call [phone]. * Continue your Medications until directed to stop by your Healthcare provider. General Medication Information Please continue to take your new medications and your continued home medications , unless otherwise indicated on your discharge medication list, or unless directed by your MD or NAVIGATION TEACHER to stop them. Special Instructions Diet Regular Activity Normal - Tobacco Use Treatment Offered Post DC Medications Offered: Script Given-See Med List Post DC Tobacco Treatment Plan: Refused Tobacco Tx Pgm - EtOH/Drug Use D/O Treatment Offered Post DC Medications Offered: Med Not Indicated for D/O Post DC EtOH/SubAbuse TX Plan: Other SubAbuse/Dual Pgm Metabolic Screening Patient on a neuroleptic(s) . Enter below results for Hemoglobin A1C, and lipid panel if obtained during the last 365 days. BMI: 34.700 Blood Pressure: 121/65 Laboratory Results From [facility] (If applicable): Lab Cholesterol 156 MG/DL 12/11/17 0647 Cholesterol/HDL Ratio 4 % 12/11/17 0647 HDL Cholesterol 39 mg/dL L 12/11/17 0647 Hemoglobin A1c 5.5 % 12/11/17 0647 LDL Cholesterol, Calc 93 mg/dL 12/11/17 0647 Triglycerides 121 mg/dL 12/11/17 0647 Advance Directives Does the Patient have Medical Advance Directives No/Refused further info Does Pt have Psychiatric Advance Directives? No/Refused further info Does Patient have a Designated Surrogate Decision Maker: No Information About Psychiatric Advance Directives Provided? Yes Discharge Plan Post Hospital Treatment Plan: [facility]
[2017-12-25] MEDS ORDERED: HALOPERIDOL5 MG PO (10:35)
--- NOTE | 2017-12-25 11:02 | SOCIAL WORKER PROG NOTE PSYCH ---
Social Work Progress Note Progress Note Called [facility] to cancel the 10am intake for today. I was informed by Marlene that it was already done as they realized he didn't need another intake since he was already in services. Met with Terrance, Terrance's Mother, and Dr. Mayfield at 10:30am this morning. Terrance complained of some side effects that seem to be related per Dr. Mayfield to the Haldol. He is experiencing a slowed response in movement and speech. He feels that there is a heaviness to everything he is doing. Dr. Mayfield lowered the Haldol to hopefully reduce this side effect. Terrance was encouraged to make sure that he lets IOP staff know that he will need to see their prescriber there, now that he is on meds. Let them know that I will be faxing his information to [facility]. He stated he will most likely return to IOP on 12/29. He feels he could use a day to adjust to being home. He was encouraged to remain on the medication and work with his prescriber if he isn't feeling well. He was also encouraged to look at Haldol Dec as an option, but he refused that stating he didn't feel that it would be good to have the medication in his system for a whole month in fear of any problems. He said he will take it daily. All his meds were reviewed. He seems to be aware of when he is taking his medications. Overall he was smiling at the meeting, eager to go home today. Mom will take him to warehouse order picker his prescriptions. A letter was given stating he was here at the hospital and should resume IOP.
--- NOTE | 2017-12-25 12:05 | SOCIAL WORKER PROG NOTE PSYCH ---
Social Work Progress Note Faxed Referral(s) Referred To: [facility] Transition of Care Documents sent: Health Summary Faxed to: [facility] Fax #: [phone] Faxed by: Sabrina Marmolejo Date faxed: 12/25/17 Time Faxed: [phone]
--- NOTE | 2017-12-25 13:31 | DISCHARGE SUMMARY REPORT-PSYCH ---
Visit Information Visit Dates/Diagnosis' Admission Date: 12/08/17 Discharge Date: 12/25/17 Reason for Admission: depression and ideas of reference Psy Discharge Primary Diag: Psychotic Disorder Psy Discharge Secondary Diag: Cocaine Use Disorder Hospital Course Significant Lab Findings: Lab Cholesterol 156 MG/DL 12/11/17 06 Cholesterol/HDL Ratio 4 % 12/11/17 06 HDL Cholesterol 39 mg/dL L 12/11/17 06 Hemoglobin A1c 5.5 % 12/11/17 06 LDL Cholesterol, Calc 93 mg/dL 12/11/17 06 Triglycerides 121 mg/dL 12/11/17 06 Course Complications: The patient did not have any complications while he was on the inpatient psychiatric unit. Consultations: The patient had a history and physical examination by the graining machine operator. Please refer to the patient's electronic health record for the details of the H&P. Allergies: Coded Allergies: No Known Allergies (12/06/17) Hospital Course/TX Response: 12/09/2017: Impression and Plan: 32-year-old man with long-standing substance abuse history with strong family history for bipolar disorder presenting with months of psychotic symptoms in the absence of any recent active substance use, accompanied by significant depression, concerning for a psychotic depressive episode, likely with an underlying diagnosis of bipolar disorder. DSM 5 Diagnosis(es): Unspecified Psychotic Disorder Cocaine Use Disorder Treatment Plan: Inpatient psychiatric care Change risperidone to 2 mg at bedtime 12/10/2017: Increase risperidone to 3 mg at bedtime 12/11/2017: Continue risperidone 3 mg at bedtime 12/12/2017: The patient started refusing risperidone and I discussed options with him, he agreed to start Haldol 5 mg at bedtime and continue Lexapro 10 mg daily and Ativan 1 mg at bedtime Over the next few days the dose of the Haldol was adjusted up to 10 mg. The patient did not have difficulties with Haldol and tolerated it pretty well until the very last day when he reported that he feels that his legs were stiff. We decided to reduce the dose from 10 mg to a dose of 7.5 mg at bedtime and history of adding medications for the side effects. 12/25/2017 Vital Signs Date Time Temp Pulse B/P B/P Pulse O2 FiO2 12/25 0752 97.6 69 121/65 12/24 1945 96.7 69 129/68 1547 73 107/59 Mental Status Examination: Terrance denied having hallucinations yesterday or today. He was alert and oriented to time, place, and person no samaritan or other delusional thoughts today no thought disorder noted today, he seemed to be in very good spirits, he denied feeling depressed and denied thinking of suicide today. His speech was normal, no talkativeness, and no pressure in his speech. Terrance denied having violent thoughts or thoughts of homicide. Assessment: Terrance is a 32-year-old Single Multi-Ethnic male (Black Hondoran-White extraction) presenting with psychotic symptoms in the absence of any recent active substance use. Since his admission on 12/08/2017, there has moderate improvement in his mood and thought process. He has been denying thoughts of suicide for the second day in a row Diagnoses: Unspecified Psychotic Disorder Cocaine Use Disorder Treatment Plan Update: D/C Home Discharge HBIPS - Tobacco Use Treatment Offered Post DC Medications Offered: Script Given-See Med List Post DC Tobacco Treatment Plan: Refused Tobacco Tx Pgm - EtOH/Drug Use D/O Treatment Offered Post DC Medications Offered: Med Not Indicated for D/O Post DC EtOH/SubAbuse TX Plan: Other SubAbuse/Dual Pgm Metabolic Screening - Screen if on a Neuroleptic Medication - Metabolic screening should include: - Blood Pressure, BMI, Glucose or Hgb A1c, & a - Lipid profile from within the past 365 days. Metabolic Screening Patient on a neuroleptic(s) . Enter below results for Hemoglobin A1C, and lipid panel if obtained during the last 365 days. BMI: 34.700 Blood Pressure: 121/65 Laboratory Results From [facility] (If applicable): Lab Cholesterol 156 MG/DL 12/11/17 0647 Cholesterol/HDL Ratio 4 % 12/11/17 0647 HDL Cholesterol 39 mg/dL L 12/11/17 0647 Hemoglobin A1c 5.5 % 12/11/17 0647 LDL Cholesterol, Calc 93 mg/dL 12/11/17 0647 Triglycerides 121 mg/dL 12/11/17 0647 Discharge Instructions General Discharge Information Multiple Neuroleptics: Not Applicable Discharge Diet Regular Discharge Activity Normal DC Disposition: Home Referrals Ordered Referrals Provider Referral 12/25/17 For Groups: [[facility]] [facility] Intensive Outpatient Services for mental health and substance use Resume services at [facility] by Friday01/05/18 Nabila [address]. [place], [place] [phone] Provider Referral 12/31/17 For Groups: Outpatient Psychiatry [facility] Smoking Cessation Group 12/31/17 4pm [address] [place] [address] Prescriptions Start taking the following new medications: Albuterol Sulfate (Ventolin Hfa) 90 MCG HFA.AER.AD 2 Puff Inhale through mouth EVERY 4 HOURS NEEDED as needed for WHEEZING Qty = 1 No Refills Comments: Last Taken:12/24/17 Time:8pm Nicotine (Nicotine Patch) 7 MG/24 HOUR PATCH.TD24 7 Milligram On the skin DAILY Qty = 14 No Refills Comments: Last Taken:12/25/17 Time:8am Gabapentin (Neurontin) 600 MG TABLET 1 Tablet ORAL SEE INSTRUCTIONS Qty = 120 No Refills Instructions: 1 tab in AM, one tab in afternoon and 2 tabs at bedtime Comments: Last Taken:12/24/17 Time:2pm Escitalopram Oxalate (Lexapro) 20 MG TABLET 1 Tablet ORAL DAILY Qty = 30 No Refills Comments: Last Taken:12/25/17 Time:8am Haloperidol (Haloperidol) 5 MG TABLET 1.5 Tablet ORAL AT BEDTIME Qty = 45 No Refills Studies Pending at Discharge None Copies To: [facility]
== END 2017-12-25 11:14 | DRG 751 ==
LOC: ERH 17:23 → CP SOUTH 12-08 11:22 → ERHI 12-08 11:22 → ENTRNSPT 12-08 12:14 → EDTRNSPT 12-08 12:38 → EDTRNSPTSTS 12-08 12:38 → CP SOUTH 12-08 12:45 → CMPTRNSPT 12-08 12:48 → CP SOUTH 12-08 12:56 → ENRESERV 12-08 23:59 → CANRESERV 12-08 23:59 → CP SOUTH 12-25 11:14
PROVIDERS: Physician Assistant Medical; Psychiatry & Neurology Psychiatry
DX: F29 Unspecified psychosis not due to a substance or known physiological condition (principal); F14.90 Cocaine use, unspecified, uncomplicated
CPT/HCPCS: 36415; 80307; G0463; G0480; J3490

== ENCOUNTER 2017-12-28 14:25 | Emergency (ER) | payer OTHER ==
[~2017-12-28] VITALS: Ht 182.9 cm; Wt 120.2 kg
[~2017-12-28 14:25] MED LIST: HALOPERIDOL10 M1 PO; HALOPERIDOL5 MG PO; LEXAPRO20 M1 PO; NEURONTIN600 M1 PO; NICOTINE PATCH1 EAC1 TOP; VENTOLIN HFA18 GM INH
--- NOTE | 2017-12-28 15:51 | ED PSYCHIATRIC COMPLAINT ---
History of Present Illness General Chief Complaint: General Adult Stated Complaint: BAD REACTION TO MEDS/ STIFFNESS Source: patient Exam Limitations: no limitations Vital Signs & Intake/Output Vital Signs & Intake/Output Vital Signs Date Time Temp Pulse Resp B/P B/P Pulse O2 O2 Flow FiO2 Mean Ox Delivery Rate 12/28 1641 82 18 171/95 94 Room Air 12/28 1636 Room Air ED Intake and Output 12/29 0000 12/28 1200 Intake Total Output Total Balance Patient 265 lb Weight Allergies Coded Allergies: No Known Allergies (12/06/17) Reconcile Medications Albuterol Sulfate (Ventolin Hfa) 90 MCG HFA.AER.AD 2 PUF INH Q4P PRN WHEEZING Benztropine Mesylate (Cogentin) 2 MG/2 ML AMPUL 2 ML PO DAILY shaking Escitalopram Oxalate (Lexapro) 20 MG TABLET 1 TAB PO DAILY depression/anxiety Gabapentin (Neurontin) 600 MG TABLET 1 TAB PO SEE ADMIN CRITERIA anxiety/ insomnia 1 tab in AM, one tab in afternoon and 2 tabs at bedtime Haloperidol 5 MG TABLET 1.5 TAB PO AT BEDTIME mental health Nicotine (Nicotine Patch) 7 MG/24 HOUR PATCH.TD24 7 MG TOP DAILY smoking Triage Note: PT STATES THAT HE WAS DISCHARGED FROM [facility] FRIDAY AFTER A 19 DAY ADMISSION FOR DEPRESSION , PT WAS STARTED ON HALDOL AND LEXAPRO, PRIOR TO BEING DISCHARGED THEY LOWERED DOSE OF HALDOL TO 7.5 MG DUE TO HE WAS COMPLAINING OF SHAKINESS AND STIFF MUSCLES, THEY TOLD HIM SYMPTOMS WOULD BE BETTER BY TODAY , " STATES THAT THE SYMPTOMS ARE WORSE. PT ADMITS TO HEROINE AND COCAINE USE 2 DAYS AGO. ALSO STATES THAT HE IS CINCERNED DUE TO THEY HAD HIM ON ATIVAN WHEN HE WAS HERE AND THEY STOPPED THOSE Triage Nurses Notes Reviewed? yes Onset: Gradual Duration: day(s): Timing: recent history Severity: moderate HPI: 32yo male with hx of depression, opiate dependence presents to ED complaining of medication side effects. PAtient was discharged from [facility] a few days ago. Patient had been admitted for depression. While here in the hospital patient was taking haldol and lexapro. Patient experienced shaking and muslce stiffness and his haldol was lowered to 7.5mg prior to his discharge. Patient states he was given ativan while here and it helped his symptoms however he was not prescribed this medication at home. Patient presents d/t persistent stiffness and shaking symptoms. Patient states that since being discharged from Inpatient Psychiatry he has relapsed on cocaine and heroin. Patient denies suicidal ideation, worsening depression, homicidal ideation. (Virgen Milian) Past History Travel History Traveled to [place] past 21 day No Medical History Any Pertinent Medical History? see below for history Neurological: NONE EENT: NONE Cardiovascular: NONE Respiratory: NONE Gastrointestinal: NONE Hepatic: NONE Renal: NONE Musculoskeletal: NONE Psychiatric: depression, opioid dependence Endocrine: NONE Blood Disorders: NONE Cancer(s): NONE Surgical History Surgical History: non-contributory Psychosocial History Who do you live with Family What is your primary language Japanese Tobacco Use: Current Daily Use Daily Tobacco Use Amount/Type: =< 4 Cigarettes daily ETOH Use: occasional use Illicit Drug Use: cocaine, heroin Family History Hx Contributory? No (Virgen Milian) Review of Systems Review of Systems Constitutional: Reports: see HPI. EENTM: Reports: no symptoms. Respiratory: Reports: no symptoms. Cardiovascular: Reports: no symptoms. GI: Reports: no symptoms. Genitourinary: Reports: no symptoms. Musculoskeletal: Reports: no symptoms. Skin: Reports: no symptoms. Neurological/Psychological: Reports: see HPI. Hematologic/Endocrine: Reports: no symptoms. Immunologic/Allergic: Reports: no symptoms. All Other Systems: Reviewed and Negative (Virgen Milian) Physical Exam Physical Exam General Appearance: well developed/nourished, no apparent distress, alert, awake Head: atraumatic, normal appearance Eyes: Bilateral: normal appearance, PERRL, EOMI. Ears, Nose, Throat: hearing grossly normal Neck: normal inspection, supple, full range of motion Respiratory: normal breath sounds, no respiratory distress, lungs clear Cardiovascular: regular rate/rhythm Extremities: normal range of motion Neurological/Psychiatric: no motor/sensory deficits, awake, alert, normal mood/ affect, calm Appearance/Memory/Insight: appropriate appearance, appropriate insight Behavoir/Eye Contact/Speech: cooperative, normal speech Thoughts/Hallucinations: normal thought pattern, no apparent hallucination Skin: intact, normal color, warm/dry SAD PERSONS Done? patient not suicidal (Virgen Milian) Progress Differential Diagnosis: drug intoxication, drug overdose, drug withdrawal, extrapyrimidal side effects, medication adverse reaction Plan of Care: Patient's symptoms are likely related to his current Haldol medications, they are consistent with extrapyramidal side effects relating to this medication. Patient is not currently on Cogentin. Patient was offered to try Cogentin for his symptoms or to stay for psychiatric evaluation here in the emergency department. Patient elects to proceed with Cogentin rather than stay for crisis evaluation. He was given strict precautions. The patient is not suicidal at this time, he felt safe going home. He has appointment with a social media marketing specialist tomorrow. Agrees with the plan of care. The patient was discussed with Dr. Damon who agrees with this plan. (Virgen Milian) Departure Departure Disposition: HOME OR SELF CARE Condition: Stable Clinical Impression Primary Impression: Muscle tremor Secondary Impressions: Medication side effect Referrals: Unknown (PCP/Family) Additional Instructions: BEgin cogentin as prescribed. Follow up with your specialist tomorrow. Return with worsening symptoms or concerns. Please note that there might be incidental findings in your evaluation that are unrelated to the current emergency department visit. Please notify your primary care doctor about this emergency department visit in order to obtain and review all of the testing performed so that these incidental findings can be monitored as needed. If you had an x-ray performed, please understand that some fractures may not be seen on the initial set of x-rays. If your symptoms persist you might need a repeat set of x-rays to check for such a fracture. If you had a laceration evaluated, please understand that foreign bodies such as glass or wood may not be visible to the naked eye or on plain x-rays. If the wound becomes red, swollen, increasingly more painful or if there is any drainage from the wound, please have it reevaluated by a physician for the possibility of a retained foreign body. If you're unable to follow up as outlined in the discharge instructions please return to the emergency department. Thank you for choosing the [facility] Emergency Department for your care. It was a pleasure to serve you today. Departure Forms: Customer Survey General Discharge Information Prescriptions: Current Visit Scripts Benztropine Mesylate (Cogentin) 2 ML PO DAILY #20 ML (Virgen Milian) PA/HADOOP CONSULTANT Co-Sign Statement Statement: ED Attending supervision documentation- I saw and evaluated the patient. I have also reviewed all the pertinent lab results and diagnostic results. I agree with the findings and the plan of care as documented in the PA's/HADOOP CONSULTANT's documentation. x I have reviewed the ED Record and agree with the PA's/HADOOP CONSULTANT's documentation. [] Additions or exceptions (if any) to the PAs/HADOOP CONSULTANT's note and plan are summarized below: [] (Nelson RIVERA,Palmer)
[2017-12-28] MEDS ORDERED: COGENTIN2 MG/2 ML PO (16:37)
[2017-12-28 16:41] VITALS: BP 171/95
== END 2017-12-28 16:39 ==
LOC: ERH 14:25
DX: T43.205A Adverse effect of unspecified antidepressants, initial encounter (principal); R25.1 Tremor, unspecified